=== PATIENT | female | born 1960 | race Caucasian/White ===

== ENCOUNTER → 2020-07-03 11:04 | Outpatient (BNVA) | payer SELFPAY | PROVIDERS: PCP Family Medicine; Visit Provider Internal Medicine ==

== ENCOUNTER 2021-06-06 09:48 | Outpatient (REF) | payer OTHER, SELFPAY ==
[2021-06-06 11:35] LABS: MANUAL DIFF FLAG NO
[2021-06-06 11:43] LABS: Basophils Percent Auto 0.4 % (0-2); Eosinophils Absolute Auto 0.1 X10*3/uL (0.0-0.4); Eosinophils Percent Auto 2.4 % (0-4); Hematocrit 37.4 % (37.0-47.0); Hemoglobin 12.6 g/dl (12.0-16.0); Imm Gran Abs Auto 0.01 X10*3/uL (0.00-0.03); Imm Gran Pct Auto 0.2 % (0.0-0.4); Lymphocytes Absolute Auto 1.7 X10*3/uL (1.2-4.9); Lymphocytes Percent Auto 31.7 % (20-40); Mean Corpuscular HGB Conc 33.7 g/dl (31.0-35.0); Mean Corpuscular Hemoglobin 30.4 pg (27.0-33.0); Mean Corpuscular Volume 90.3 fL (80.0-98.0); Mean Platelet Volume 10.1 fL (9.4-12.3); Monocytes Absolute Auto 0.5 X10*3/uL (0.1-1.2); Monocytes Percent Auto 9.6 % (2-11); Neutrophils Percent Auto 55.7 % (45-73); Platelet Count 237 X10*3/uL (160-400); Red Blood Count 4.14 X10*6/uL (4.20-5.50); Red Cell Distribution Width 13.8 % (11.0-16.0); White Blood Count 5.4 X10*3/uL (4.8-10.8)
[2021-06-06 12:05] LABS: Alanine Aminotransferase 19 U/L (0-31); Albumin Level 4.3 g/dL (3.5-5.0); Alkaline Phosphatase 66 U/L (39-117); Anion Gap 10 (12-20); Aspartate Amino Transferase 23 U/L (5-31); Bilirubin Total 0.4 mg/dL (0.0-1.0); Blood Urea Nitrogen 20 mg/dL (9-16); Calcium 9.4 mg/dL (8.4-10.2); Carbon Dioxide 27 mmol/L (22-29); Chloride 107 mmol/L (96-108); Cholesterol 217 mg/dL; Estimated Glomerular Filt Rate > 60; Glucose Fasting 99 mg/dL (60-99); HDL Cholesterol 74 mg/dL; LDL Cholesterol Calculated 130 mg/dl; Potassium 4.4 mmol/L (3.3-5.1); Sodium 140 mmol/L (135-145); Total Protein 6.8 g/dL (6.5-8.0); Triglycerides 65 mg/dL
[2021-06-06 12:27] LABS: TSH reflex Free T4 1.71 uIU/mL (0.32-4.0)
== END 2021-06-06 09:49 | disposition home or self-care (01) ==
LOC: HO.WFDLDS 09:48
PROVIDERS: Visit Provider Family Medicine
DX: Z00.00 Encounter for general adult medical examination without abnormal findings (principal); E78.5 Hyperlipidemia, unspecified; E87.5 Hyperkalemia; I10 Essential (primary) hypertension; R31.29 Other microscopic hematuria
CPT/HCPCS: 36415; 80053; 80061; 84443; 85025

== ENCOUNTER → 2021-07-01 10:33 | Outpatient (BNVA) | payer SELFPAY | PROVIDERS: PCP Family Medicine; Visit Provider Internal Medicine | DX: Z02.79 Encounter for issue of other medical certificate (principal) ==

== ENCOUNTER 2021-10-17 10:49 | Outpatient (REF) | payer OTHER, SELFPAY ==
--- NOTE | ~2021-10-17 | MM_ITS ---
EXAMINATION: BONE DENSITOMETRY CLINICAL INDICATION: Other specified disorders of bone density and structure, unspecified site. COMPARISON: Baseline BD dated 10/05/2019. TECHNIQUE: Using a Practice Management e-Tools DXA System (software version: 13.1) manufactured by [employer], dual-energy x-ray absorptiometry was performed of the lumbar spine and left hip. The images are of good technical quality. Summary results are attached. FINDINGS: AP SPINE L1-L4: Current: BMD 1.175 g/cm2, Z-score 0.7, T-score 0.0, normal, 4.6% increase from baseline (<5% change is not significant). Baseline: BMD 1.123 g/cm2. LEFT FEMUR, NECK: Current: BMD 0.882 g/cm2, Z-score -0.2, T-score -1.1, osteopenia. Baseline: BMD 0.843 g/cm2. LEFT FEMUR, TOTAL: Current: BMD 0.988 g/cm2, Z-score 0.4, T-score -0.2, normal, 4.8% increase from baseline (<5% change is not significant). Baseline: BMD 0.943 g/cm2. IDENTIFIED RISK FACTORS: Menopause. HISTORY OF FRACTURE: None listed. MEDICATIONS: Calcium supplement and/or multivitamin. Vitamin D. MM/XR DEXA axial skeleton IMPRESSION: 1. DIAGNOSIS: Osteopenia based on the lowest T-score value of -1.1 in the femoral neck applying World Health Organization criteria. 2. 10-YEAR FRACTURE RISK PREDICTION, FRAX: Major osteoporotic fracture (clinical spine, forearm, hip or shoulder) 7.1%. Hip fracture 0.4%. 3. Treatment Recommendations: NOF guidelines recommend consideration for treatment in postmenopausal women and men age 50 and older presenting with the following: -A hip or vertebral (clinical or morphometric) fracture. -T-score less than or equal to -2.5 at the femoral neck or spine after appropriate evaluation to exclude secondary causes. -Low bone mass at the hip or spine and a 10-year fracture probability by FRAX of greater than or equal to 3% for hip fracture or greater than or equal to 20% for major osteoporotic fracture based on the [place] adapted WHO algorithm. 4. Other Recommendations: All treatment decisions require clinical judgment and consideration of individual patient factors, including patient preferences, comorbidities, previous drug use, risk factors not captured in the FRAX model (e.g. frailty, falls, vitamin D deficiency, increased bone turnover, interval significant decline in bone density) and possible under or overestimation of fracture risk by FRAX. Additional medical evaluation for secondary cause of low bone mineral density may be appropriate. FUTURE SCAN RECOMMENDATION: People with diagnosed cases of osteoporosis or at high risk for fracture should have regular bone mineral density tests. For patients eligible for Medicare, routine testing is allowed once every 2 years. The testing frequency can be increased to one year for patients who have rapidly progressing disease, those who are receiving or discontinuing medical therapy to restore bone mass, or have additional risk factors.
== END 2021-10-17 10:50 | disposition home or self-care (01) ==
LOC: HO.MAMMO 10:49
PROVIDERS: Absent Provider Obstetrics & Gynecology; PCP Family Medicine; Visit Provider Family Medicine
DX: Z13.820 Encounter for screening for osteoporosis (principal); M85.80 Other specified disorders of bone density and structure, unspecified site; Z78.0 Asymptomatic menopausal state
CPT/HCPCS: 77080

== ENCOUNTER 2021-12-12 11:00 | Outpatient (RCR) | payer OTHER, SELFPAY ==
--- NOTE | 2021-10-20 15:09 | MHC.PT.EP ---
[facility] [place] Office [place] Office [place] Office [address] Ever Hernández 140 [facility] [phone] F: [phone] F: [phone] F: [phone] F: [phone] Physical Therapy Plan of Care Date of Evaluation: 10/20/21 Date of Surgery: Diagnosis: stress incontinence Assessment: Pt consented to an internal exam of her pelvic floor muscles. The patient arrived with decreased tone in the anterior vaginal wall. Poor coordination for motor recruitment that improved with repetition of contraction and cueing. The patient had poor muscular endurance and the contraction faded without her awareness. Improved awareness with cues. The patient also reports a great deal of urge incontinence. I educated her on urge suppression techniques, bladder retraining techniques, and other lifestyle changes such as avoidance of just in case peeing. The patient is an excellent candidate for skilled Pelvic floor PT. Frequency and Duration: The patient will be seen 1x/week x 6 weeks. Short Term Goals: 1. Pt to verbalize understanding of urge suppression techniques. 2. Pt to verbalize understanding of initial HEP. Senior Living Goals: 1. Pt to be able to play recreational sport without urinary incontinence. 2. Pt to be able to improve PFM coordination to allow 10 quick contractions consecutively 3. Pt to have improved PFM motor recruitment to have improved endurance contraction. Treatment Plan: Modalities to reduce pain, spasms and effusion. Manual therapy to restore motion and function. Therapeutic exercise to improve strength and flexibility. Neuromuscular re-education for posture and balance. Therapeutic activities to return to functional activities of daily living. Electronically signed by: Poonam Mariano PT DPT Please sign and return to therapist. Thank you for your referral.
--- NOTE | 2021-12-12 14:15 | MHC.PT.DC ---
[facility] [place] Office [place] Office [place] Office [address] Ever Hernández [address] [phone] F: [phone] F: [phone] F: [phone] F: [phone] Physical Therapy Discharge Report Diagnosis: stress incontinence Date of Surgery: Date of Evaluation: 10/20/21 Date of Discharge: 12/12/21 Treatments to Date: 6 Cancellations to Date: No Shows to Date: Discharge Status: Achieved Goals Improved Function Independent with HEP Discharge Summary: Pt feels she has the tools to continue independently. She no longer has incontinence. Her endurance has improved significantly as well as overall coordination and motor recruitment of PFM. She learned how to have NMR in standing which will help with playing tennis. Pt has her HEP with pictures and descriptions and she is discharged from skilled PT at this time Electronically signed by: Poonam Mariano PT DPT Please sign and return to therapist. Thank you for your referral.
== END 2021-12-12 14:16 | disposition home or self-care (01) ==
LOC: HO.PT 11:00
PROVIDERS: PCP Family Medicine; Visit Provider Family Medicine
DX: N39.3 Stress incontinence (female) (male) (principal)
CPT/HCPCS: 97110; 97112; 97162; 97530

== ENCOUNTER 2021-12-19 09:36 | Outpatient (REF) | payer OTHER, SELFPAY ==
[2021-12-19 11:34] LABS: MANUAL DIFF FLAG NO
[2021-12-19 11:36] LABS: Basophils Percent Auto 0.2 % (0-2); Eosinophils Absolute Auto 0.1 X10*3/uL (0.0-0.4); Eosinophils Percent Auto 1.6 % (0-4); Hematocrit 37.6 % (37.0-47.0); Hemoglobin 12.2 g/dl (12.0-16.0); Imm Gran Abs Auto 0.02 X10*3/uL (0.00-0.03); Imm Gran Pct Auto 0.3 % (0.0-0.4); Lymphocytes Absolute Auto 1.9 X10*3/uL (1.2-4.9); Lymphocytes Percent Auto 30.8 % (20-40); Mean Corpuscular HGB Conc 32.4 g/dl (31.0-35.0); Mean Corpuscular Volume 89.5 fL (80.0-98.0); Mean Platelet Volume 10.1 fL (9.4-12.3); Monocytes Absolute Auto 0.6 X10*3/uL (0.1-1.2); Monocytes Percent Auto 9.3 % (2-11); Neutrophils Absolute Auto 3.6 x10*3/uL (2.0-8.3); Neutrophils Percent Auto 57.8 % (45-73); Platelet Count 242 X10*3/uL (160-400); Red Cell Distribution Width 14.1 % (11.0-16.0); White Blood Count 6.2 X10*3/uL (4.8-10.8)
[2021-12-19 11:51] LABS: Appearance Urine CLEAR; Color Urine YELLOW; Glucose Urine UA NEG (NEG); Leukocyte Esterase Urine NEG (NEG); Nitrite Urine NEG (NEG); Specific Gravity - Urine <= 1.005 (1.005-1.025); Urine Blood NEG (NEG); Urine Ketones NEG (NEG); Urine Protein NEG (NEG-TRACE)
[2021-12-19 12:14] LABS: Alanine Aminotransferase 18 U/L (0-31); Albumin Level 4.2 g/dL (3.5-5.0); Alkaline Phosphatase 65 U/L (39-117); Anion Gap 11 (12-20); Aspartate Amino Transferase 22 U/L (5-31); Bilirubin Total 0.5 mg/dL (0.0-1.0); Blood Urea Nitrogen 17 mg/dL (9-16); Calcium 9.6 mg/dL (8.4-10.2); Carbon Dioxide 29 mmol/L (22-29); Chloride 106 mmol/L (96-108); Cholesterol 214 mg/dL; Estimated Glomerular Filt Rate > 60; Glucose Fasting 87 mg/dL (60-99); HDL Cholesterol 71 mg/dL; LDL Cholesterol Calculated 128 mg/dl; Potassium 4.7 mmol/L (3.3-5.1); Sodium 141 mmol/L (135-145); Total Protein 6.4 g/dL (6.5-8.0); Triglycerides 76 mg/dL
[2021-12-19 12:36] LABS: TSH reflex Free T4 1.53 uIU/mL (0.32-4.0)
[2021-12-19 12:36] LABS: Creatinine Urine 37.54 mg/dL; Microalbumin Urine < 5.0 mg/L
== END 2021-12-19 09:37 | disposition home or self-care (01) ==
LOC: HO.WFDLDS 09:36
PROVIDERS: Visit Provider Family Medicine
DX: Z00.00 Encounter for general adult medical examination without abnormal findings (principal); M85.80 Other specified disorders of bone density and structure, unspecified site; R31.29 Other microscopic hematuria; I10 Essential (primary) hypertension
CPT/HCPCS: 36415; 80053; 80061; 81003; 82043; 84443; 85025

== ENCOUNTER 2022-04-28 17:09 | Outpatient (REF) | payer OTHER, SELFPAY ==
--- NOTE | ~2022-04-28 | XR_ITS ---
EXAMINATION: XR CHEST CLINICAL INFORMATION: Chronic cough. COMPARISON: None TECHNIQUE: 2 views of the chest were obtained. FINDINGS: No significant abnormality is noted involving the heart, lungs, mediastinum, bony thorax or soft tissues. XR/XR chest 2V IMPRESSION: No acute cardiopulmonary process.
== END 2022-04-28 17:10 | disposition home or self-care (01) ==
LOC: HO.XRAY 17:09
PROVIDERS: PCP Family Medicine; Visit Provider Family Medicine
DX: R05.3 Chronic cough (principal)
CPT/HCPCS: 71046

== ENCOUNTER 2022-06-08 09:57 | Outpatient (REF) | payer OTHER, SELFPAY ==
--- NOTE | ~2022-06-08 | XR_ITS ---
EXAMINATION: XR SINUSES CLINICAL INFORMATION: Sinusitis COMPARISON: None TECHNIQUE: 3 views of the sinuses were obtained. FINDINGS: Paranasal sinuses appear clear without air-fluid levels. No fractures are identified. No radiodense foreign bodies. XR/XR sinus min 3V IMPRESSION: Unremarkable examination.
== END 2022-06-08 09:58 | disposition home or self-care (01) ==
LOC: HO.XRAY 09:57
PROVIDERS: PCP Family Medicine; Visit Provider Otolaryngology
DX: J32.9 Chronic sinusitis, unspecified (principal)
CPT/HCPCS: 70220

== ENCOUNTER → 2022-06-29 09:59 | Outpatient (BNVA) | payer OTHER, SELFPAY | PROVIDERS: PCP Family Medicine; Visit Provider Internal Medicine | DX: Z02.79 Encounter for issue of other medical certificate (principal) ==

== ENCOUNTER 2023-03-03 11:43 | Outpatient (REF) | payer OTHER, SELFPAY ==
[2023-03-03 14:46] LABS: MANUAL DIFF FLAG NO
[2023-03-03 14:55] LABS: Appearance Urine Clear; Color Urine Yellow; Glucose Urine UA Negative (Negative); Leukocyte Esterase Urine Negative (Negative); Nitrite Urine Negative (Negative); PH 5.5 (5.0-9.0); Specific Gravity - Urine 1.015 (1.005-1.025); Urine Blood Negative (Negative); Urine Ketones Negative (Negative); Urine Protein Negative (Neg-Trace)
[2023-03-03 14:56] LABS: Basophils Percent Auto 0.5 % (0-2); Eosinophils Absolute Auto 0.1 X10*3/uL (0.0-0.4); Eosinophils Percent Auto 1.5 % (0-4); Hematocrit 38.3 % (37.0-47.0); Hemoglobin 12.5 g/dl (12.0-16.0); Imm Gran Abs Auto 0.01 X10*3/uL (0.00-0.03); Imm Gran Pct Auto 0.2 % (0.0-0.4); Lymphocytes Absolute Auto 1.7 X10*3/uL (1.2-4.9); Lymphocytes Percent Auto 28.2 % (20-40); Mean Corpuscular HGB Conc 32.6 g/dl (31.0-35.0); Mean Corpuscular Volume 91.8 fL (80.0-98.0); Mean Platelet Volume 10.7 fL (9.4-12.3); Monocytes Absolute Auto 0.7 X10*3/uL (0.1-1.2); Monocytes Percent Auto 11.1 % (2-11); Neutrophils Absolute Auto 3.5 x10*3/uL (2.0-8.3); Neutrophils Percent Auto 58.5 % (45-73); Platelet Count 254 X10*3/uL (160-400); Red Blood Count 4.17 X10*6/uL (4.20-5.50); Red Cell Distribution Width 14.5 % (11.0-16.0); White Blood Count 5.9 X10*3/uL (4.8-10.8)
[2023-03-03 15:30] LABS: Alanine Aminotransferase 21 U/L (0-31); Albumin Level 4.2 g/dL (3.5-5.0); Alkaline Phosphatase 69 U/L (39-117); Anion Gap 15 (12-20); Aspartate Amino Transferase 33 U/L (5-31); Bilirubin Total 0.5 mg/dL (0.0-1.0); Blood Urea Nitrogen 18 mg/dL (9-16); Calcium 9.8 mg/dL (8.4-10.2); Carbon Dioxide 24 mmol/L (22-29); Chloride 108 mmol/L (96-108); Cholesterol 216 mg/dL; Estimated Glomerular Filt Rate > 60; Glucose Fasting 93 mg/dL (60-99); HDL Cholesterol 75 mg/dL; LDL Cholesterol Calculated 126 mg/dl; Sodium 142 mmol/L (135-145); Total Protein 7.2 g/dL (6.5-8.0); Triglycerides 77 mg/dL
[2023-03-03 15:47] LABS: TSH reflex Free T4 1.41 uIU/mL (0.32-4.0)
[2023-03-03 15:57] LABS: Creatinine Urine 69.25 mg/dL; Microalbum/Creatinine Ratio Ur 8.6 ug/mg cr
== END 2023-03-03 11:44 | disposition home or self-care (01) ==
LOC: HO.WFDLDS 11:43
PROVIDERS: Visit Provider Family Medicine
DX: Z00.00 Encounter for general adult medical examination without abnormal findings (principal); I10 Essential (primary) hypertension
CPT/HCPCS: 36415; 80053; 80061; 81003; 82043; 84443; 85025

== ENCOUNTER 2023-03-09 11:04 | Outpatient (AMB) | payer OTHER, SELFPAY ==
[2023-03-09 11:07] VITALS: BP 128/70; PULSE 56; O2SAT 100; BMI 29.9
--- NOTE | 2023-03-09 11:07 | MHC.PC.OV ---
Vital Signs 03/09/23 11:07 Height 5 ft 5.4 in Weight 182 lb BMI 29.9 BP 128/70 Pulse 56 Pulse Source Pulse Oximeter Pulse Oximetry (%) 100 Oxygen Delivery Method Room Air Intake Visit Reasons: CPE with f/u labs and health maint. Intake Note: Patient is here for follow up on labs. Allergies latex Allergy (Unknown, Verified 03/09/23 11:13) rash Medication List - Last Reconciled 03/09/23 by Sander Silva MD clobetasol 0.05% 1 appl topical BID clobetasol 0.05% mL topical BEDTIME fluticasone propionate 50 mcg/actuation (Flonase Allergy Relief) 1 spray intranasal Q12H 30 days losartan 25 mg PO DAILY pimecrolimus 1% appl topical BID PRN polymyxin B sulf-trimethoprim 10,000 unit- 1 mg/mL 1 drp ophthalmic (eye) Q3H simvastatin 20 mg PO BEDTIME Tobacco use date assessed: 08/04/22 Dental Screening Dental Screen Date: 03/09/23 Did you have a dental visit in the last 12 months?: Yes Did you have a dental problem in the last 6 months where you did not have access to dental care?: No Was dental information given to patient?: No HPI CPE with f/u labs and health maint. HPI Details 62 y/o female presents for a CPE with f/u labs and health maintenance. Labs were drawn 03/03/23. Reviewed labs with pt. Mildly elevated AST at 33. Triglycerides 77. TC 216. LDL 126. HDL 75. She is on simvastatin 20mg. Blood pressure today 128/70. She is on losartan 25mg daily. HPI Comments History of Present Illness Details Documentation assistance for Sander Silva MD, was provided by Jayden Hodgson, Oceanographer Geological on 03/09/2023 12:20 PM BOB. Pamela, Dr. Silva, have read, observed, and verified documentation. [facility] Surgical History History of section History of colonoscopy Family History Father Colon cancer AAA (abdominal aortic aneurysm) Mother AAA (abdominal aortic aneurysm) HTN (hypertension) Brother No problems noted. Brother No problems noted. Sister No problems noted. Son No problems noted. Daughter No problems noted. 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 1. Little interest or pleasure in doing things: not at all 2. Feeling down, depressed, or hopeless: not at all 3. Trouble falling or staying asleep, or sleeping too much: not at all 4. Feeling tired or having little energy: not at all 5. Poor appetite or overeating: not at all 6. Feeling bad about yourself - or that you are a failure or have let yourself or your family down: not at all 7. Trouble concentrating on things, such as reading the newspaper or watching television: not at all 8. Moving or speaking so slowly that other people could have noticed. Or the opposite - being so fidgety or restless that you have been moving around a lot more than usual: not at all 9. Thoughts that you would be better off or of hurting yourself in some way: not at all Total score: 0 Source: Developed by Drs. Abelardo Youssef, Rita Warner, Reynold Jackson and colleagues, with an educational ezio from [employer]. Thrive Questionnaire I am a: Patient What is your living situation today?: I have a steady place to live Within the past 12 months, did the food you bought not last and you didn't have the money to get more?: Never true Within the past 12 months, did you worry whether your food would run out before you got money to buy more?: Never true Do you have trouble paying for medicines?: No Do you have trouble getting transportation to medical appointments?: No Do you have trouble taking care of your child, family member or friend?: No Do you have trouble with day-to-day activities such as bathing, preparing meals, shopping, managing finances, etc.?: No Are you currently unemployed and looking for a job?: No Are you interested in more education?: No AUDIT C Alcohol Use Questionnaire (AUDIT-C) 1. How often do you have a drink containing alcohol?: Monthly or less 2. How many drinks containing alcohol do you have on a typical day when you are drinking?: 1 or 2 3. How often do you have six or more drinks on one occasion?: Never Total Score: 1 ILIANA-7 AMB Questionnaire ILIANA-7 Date ILIANA - 7 assessed: 09/23/21 Feeling nervous, anxious, or on edge: 0 = Not at all Not being able to stop or control worryin = Not at all Worrying too much about different things: 0 = Not at all Trouble relaxin = Not at all Being so restless that it is hard to sit still: 0 = Not at all Becoming easily annoyed or irritable: 0 = Not at all Feeling afraid as if something awful might happen: 0 = Not at all Total ILIANA-7 score (0-4 normal; 5-9 mild; 10-14 moderate; 15-21 severe): 0 Source: Developed by Drs. Abelardo Youssef, Rita Warner, Reynold Jackson and colleagues, with an educational ezio from [employer]. Review of Systems Const Denies chills, Denies fatigue, Denies fever(s), Denies headache(s) and Denies weakness Eyes Denies change in vision ENT Denies dizziness, Denies headache(s), Denies hearing loss, Denies nasal congestion, Denies sinus pain, Denies sinus pressure and Denies sore throat Card Denies chest pain, Denies lightheadedness, Denies dyspnea and Denies other (palpitations) Resp Denies cough, Denies dyspnea and Denies wheezing GI Denies abdominal pain, Denies melena, Denies hematochezia, Denies change in bowel habits, Denies dyspepsia and Denies nausea Denies hematuria and Denies dysuria Musc Denies abnormal gait, Denies myalgias, Denies arthralgias, Denies numbness and Denies tingling Skin/Breast Denies rash, Denies unusual bruising and Denies wounds Neuro Denies abnormal gait, Denies dizziness, Denies headache(s), Denies memory loss, Denies numbness, Denies Sensory deficit (Neuro), Denies tingling and Denies weakness Psych Denies anxiety, Denies depression and Denies memory loss Endo Denies cold intolerance, Denies fatigue, Denies heat intolerance, Denies polydipsia and Denies polyuria Mingo/Lymph Denies easy bleeding and Denies easy bruising Aller/Immun Denies wheezing Physical exam (Primary Care) Vital Signs: Last Vital Signs Pulse 56 03/09/23 11:07 BP 128/70 03/09/23 11:07 Pulse Ox 100 03/09/23 11:07 Oxygen Delivery Method Room Air 03/09/23 11:07 BMI result Body Mass Index 29.9 Tobacco/Smoking Status: Tobacco use Status Tobacco use date assessed 08/04/22 03/09/23 11:11 Patient Tobacco Use Status Former Tobacco user 03/09/23 11:11 e-Cigarette/Vaping Use Never Used 03/09/23 11:11 PHQ-9: PHQ-9 Score PHQ-9: Total score 0 03/09/23 12:05 Const General: no acute distress, well developed, alert and awake Nutritional Appearance: well nourished Orientation/consciousness: patient oriented x3 HENMT Head: Yes normocephalic and Yes atraumatic Ears: hearing grossly normal bilaterally and TM's normal bilaterally General nose exam: Normal external nose present and Normal nares present Mouth: Normal oral and palatal mucosa present and moist mucous membranes Teeth and gingiva: dentition normal Throat: Yes posterior oropharynx normal Eyes General: appearance normal, both eyes and all related structures Pupils: Equal, round and reactive pupils present and Pupil accommodation reflex normal EOM: EOMs intact bilaterally Neck Neck: Yes normal visual inspection, Yes no lymphadenopathy and Yes trachea midline Thyroid: Thyroid normal Carotids: no bruits Lymphatic: no lymphadenopathy noted Chest Chest palpation & inspection: normal inspection of the chest Resp Effort & Inspection: normal respiratory effort Auscultation: clear to auscultation bilaterally Cardio Rate: regular rate Rhythm: regular rhythm Heart sounds: S1 normal heart sound present, S2 normal heart sound present, no gallops, no murmurs and no rubs Bruits: no abdominal aortic bruits and no carotid bruits GI Palpation (GI): No Abdominal aortic bruit present, Soft to palpation, nontender, No hepatosplenomegaly present and No Rebound tenderness present Auscultation: normal bowel sounds General: Yes no CVA tenderness Back/Spine/Pelvis Back: no CVA tenderness Cervical Spine: cervical ROM normal and No Cervical spine tenderness Thoracic/Lumbar Spine: thoraco-lumbar ROM normal, No pain with thoraco-lumbar ROM, No thoracic spinal tenderness and No lumbar spinal tenderness Skin Lesions: no lesions Rashes: no rashes Trauma: no lacerations or abrasions Wounds: no wounds Nails: normal Neuro General: patient oriented x3 Cranial nerves: Yes Equal, round and reactive pupils present Cognition (Neuro): normal cognition Gait exam (Neuro): Normal gait present Motor exam (neuro): 5/5 motor strength present throughout Sensory Exam: No Sensory deficit (Neuro) Deep tendon reflexes (DTR's): Right patellar reflex intensity grade: 2+ and Left patellar reflex intensity grade: 2+ Extrem General: Yes normal to inspection and No edema Psych Appearance: grossly normal Affect: normal affect Attitude: cooperative Thought process: Normal thought process present Assessment and Plan Assessment & Plan (1) Adult general medical exam: Code(s): Z00.00 - Encounter for general adult medical examination without abnormal findings Plan: 62-year-old female presents for complete physical exam Encouraged healthy diet with active lifestyle and plenty of exercise (2) Essential hypertension: Code(s): I10 - Essential (primary) hypertension Plan: Blood pressure is controlled. Goal is less than 140/90 Continue current medication (3) Screening for cervical cancer: Code(s): Z12.4 - Encounter for screening for malignant neoplasm of cervix Plan: She gets regular Pap smears by Dr. Wang Up-to-date (4) Enlargement of sternoclavicular joint: Code(s): M25.819 - Other specified joint disorders, unspecified shoulder Plan: Check chest x-ray (5) Lipoma: Code(s): D17.9 - Benign lipomatous neoplasm, unspecified Plan: Cyst or lipoma under left jaw She has seen dermatology about this and they recommended no treatment for now. She can let me know if this is changing in any way (6) Cough: Code(s): R05 - Cough Plan: Getting chest x-ray as above Continue using allergy medication (7) Elevated liver enzymes: Code(s): R74.8 - Abnormal levels of other serum enzymes Plan: Work at weight loss Will repeat in 6 weeks and if the same or higher, will check ultrasound (8) Screening for colon cancer: Code(s): Z12.11 - Encounter for screening for malignant neoplasm of colon Plan: Last colonoscopy about 3 years ago and she was told to follow-up in 2024 Up-to-date (9) Screening for breast cancer: Code(s): Z12.39 - Encounter for other screening for malignant neoplasm of breast Plan: Has mammogram scheduled 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 (10) Osteopenia: Code(s): M85.80 - Other specified disorders of bone density and structure, unspecified site Plan: Bone density test in September 2021 Will repeat this in 2023 Orders: Orders XR chest 2V Today M25.819 - Other specified joint disorders, unspecified shoulder Coding Level of Care Code Est Pt Level 3 (58185) New Pt Prev Care 40-64y(99280) Diagnoses Adult general medical exam Z00.00 Essential hypertension I10 Screening for cervical cancer Z12.4 Enlargement of sternoclavicular joint M25.819 Lipoma D17.9 Cough R05 Elevated liver enzymes R74.8 Screening for colon cancer Z12.11 Screening for breast cancer Z12.39 Osteopenia M85.80
== END 2023-03-09 12:35 | disposition home or self-care (01) ==
PROVIDERS: Visit Provider Family Medicine
DX: Z00.00 Encounter for general adult medical examination without abnormal findings (principal); I10 Essential (primary) hypertension; Z12.4 Encounter for screening for malignant neoplasm of cervix; M25.819 Other specified joint disorders, unspecified shoulder; D17.9 Benign lipomatous neoplasm, unspecified; R05.9 Cough, unspecified; R74.8 Abnormal levels of other serum enzymes; Z12.11 Encounter for screening for malignant neoplasm of colon; Z12.39 Encounter for other screening for malignant neoplasm of breast; M85.80 Other specified disorders of bone density and structure, unspecified site
CPT/HCPCS: 99386; 99396

== ENCOUNTER 2023-04-19 09:39 | Outpatient (REF) | payer OTHER, SELFPAY ==
[2023-04-19 12:48] LABS: Alanine Aminotransferase 13 U/L (0-31); Albumin Level 4.1 g/dL (3.5-5.0); Alkaline Phosphatase 66 U/L (39-117); Anion Gap 11 (12-20); Aspartate Amino Transferase 22 U/L (5-31); Bilirubin Total 0.4 mg/dL (0.0-1.0); Blood Urea Nitrogen 17 mg/dL (9-16); Calcium 9.8 mg/dL (8.4-10.2); Carbon Dioxide 26 mmol/L (22-29); Chloride 108 mmol/L (96-108); Estimated Glomerular Filt Rate > 60; Glucose Random 90 mg/dL (60-115); Potassium 4.2 mmol/L (3.3-5.1); Sodium 141 mmol/L (135-145); Total Protein 6.9 g/dL (6.5-8.0)
== END 2023-04-19 09:40 | disposition home or self-care (01) ==
LOC: HO.WFDLDS 09:39
PROVIDERS: Visit Provider Family Medicine
DX: R74.8 Abnormal levels of other serum enzymes (principal)
CPT/HCPCS: 36415; 80053

== ENCOUNTER 2023-05-03 09:37 | Outpatient (AMB) | payer OTHER, SELFPAY ==
--- NOTE | 2023-05-03 09:35 | A.OFFPC_ITS ---
Intake Visit Reasons: follow up labs Intake Note: Patient is following up via telehealth for her labs. Patient expresses no concerns at this time. Licensed Sales Producer Required: No Accompanied by: Self / Same As Patient Allergies latex Allergy (Unknown, Verified 05/03/23 09:37) rash Tobacco use date assessed: 05/03/23 Dental Screening Dental Screen Date: 05/03/23 Did you have a dental visit in the last 12 months?: Yes Did you have a dental problem in the last 6 months where you did not have access to dental care?: No Was dental information given to patient?: Patient has dentist HPI follow up labs HPI Details 62 y/o female presents to f/u labs via trippiece. Labs were drawn 04/19/23. Reviewed labs with pt. Liver enzymes are fine. No x-rays to review. FORMERLY [facility] Surgical History History of section History of colonoscopy Family History Father Colon cancer AAA (abdominal aortic aneurysm) Mother AAA (abdominal aortic aneurysm) HTN (hypertension) Brother No problems noted. Brother No problems noted. Sister No problems noted. Son No problems noted. Daughter No problems noted. 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 Abelardo Youssef, Rita Warner, Reynold Jackson and colleagues, with an educational ezio from [email or web address]. Physical exam (Primary Care) Tobacco/Smoking Status: Tobacco use Status Tobacco use date assessed 05/03/23 05/03/23 09:37 Patient Tobacco Use Status Former Tobacco user 05/03/23 09:37 e-Cigarette/Vaping Use Never Used 05/03/23 09:37 Telehealth Telehealth Location of provider rendering services: practice address Location of patient: address on file Patient Identification confirmed using: Name, : Yes Telehealth method: voice only Patient verbally consented to treatment: Yes Patient verbally consented to billing insurance company: Yes Patient informed of any privacy concerns related to visit: Yes Minutes spent on Phone/Video with Pt.: 7 Assessment and Plan Assessment & Plan (1) Elevated liver enzymes: Code(s): R74.8 - Abnormal levels of other serum enzymes Plan: Liver?enzymes?both?back?within?normal?range.??Continue?weight?control/diet?and?g ood?hydration. (2) Enlargement of sternoclavicular joint: Code(s): M25.819 - Other specified joint disorders, unspecified shoulder Plan: Patie nt?still?has?enlargement?of?right?sternoclavicular?joint.??No?pain?and?this?does ?not?seem?to?be?changing.??She?has?not?gotten?her?chest?x- ray?performed?yet.??Will?also?add?clavicle?film?order. She?can ?schedule?a?telemedicine?appointment?to?review?this?and/or?discuss?if?it?is?ramirez ging?in?any?way. (3) Enlargement of left sternoclavicular joint: Code(s): M25.812 - Other specified joint disorders, left shoulder Plan: Patient?has?noted?left?sternoclavicular?joint?enlargement.??This?does?not ?seem?to?be?changing?and?is?nontender?but?she?is?concerned?about?his?still. Chest?x-ray?and?left?clavicle?plain?films?are?ordered. She?can?schedule?an?appointment?to?review?these?or?if?she?is?having?a ny?significant?change Orders: Orders XR clavicle LT Today M25.812 - Other specified joint disorders, left shoulder Coding Level of Care Code Tele Est Pt Level 2 (00318) Diagnoses Elevated liver enzymes R74.8 Enlargement of sternoclavicular joint M25.819 Enlargement of left sternoclavicular joint M25.819
== END 2023-05-03 15:15 | disposition home or self-care (01) ==
PROVIDERS: PCP Family Medicine; Visit Provider Family Medicine
DX: R74.8 Abnormal levels of other serum enzymes (principal); M25.811 Other specified joint disorders, right shoulder; M25.812 Other specified joint disorders, left shoulder
CPT/HCPCS: 99441

== ENCOUNTER → 2023-06-23 08:59 | Outpatient (BNVA) | payer SELFPAY | PROVIDERS: PCP Family Medicine; Visit Provider Internal Medicine | DX: Z02.79 Encounter for issue of other medical certificate (principal) ==

== ENCOUNTER 2023-09-06 09:47 | Outpatient (REF) | payer OTHER, SELFPAY ==
--- NOTE | ~2023-09-06 | XR_ITS ---
EXAMINATION: XR ELBOW, RIGHT CLINICAL INFORMATION: Right elbow pain COMPARISON: None available. TECHNIQUE: AP, lateral, and oblique views of the right elbow. FINDINGS: BONES: Bony structures are intact. There is no focal bone destruction or periosteal reaction seen. JOINTS: Alignment of joints is normal. SOFT TISSUE: Soft tissue is normal. No radiopaque foreign body or abnormal air collection is seen. XR/XR elbow RT min 3V IMPRESSION: 1. Normal x-rays of right elbow. No fracture or dislocation or signs of osteomyelitis are found.
--- NOTE | ~2023-09-06 | XR_ITS ---
EXAMINATION: XR CLAVICLE, LEFT CLINICAL INFORMATION: Left shoulder disorder COMPARISON: None available. TECHNIQUE: Frontal and axial x-rays of the left clavicle. FINDINGS: The clavicle is intact. The bones and soft tissues are normal. No fracture. Acromioclavicular joint alignment is anatomic. XR/XR clavicle LT IMPRESSION: Normal left clavicle.
== END 2023-09-06 09:48 | disposition home or self-care (01) ==
LOC: HO.XRAY 09:47
PROVIDERS: Absent Provider Physical Medicine & Rehabilitation; PCP Family Medicine; Visit Provider Family Medicine
DX: M25.812 Other specified joint disorders, left shoulder (principal); M25.521 Pain in right elbow
CPT/HCPCS: 73000; 73080

== ENCOUNTER 2024-01-13 10:31 | Outpatient (AMB) | payer OTHER, SELFPAY ==
--- NOTE | 2024-01-13 10:42 | A.OFFPC_ITS ---
Vital Signs 01/13/24 10:44 Height 5 ft 5.4 in Weight 180 lb 4 oz BMI 29.6 BP 144/64 H Blood Pressure Location Lt brachial Position Sitting Pulse 55 Pulse Source Pulse Oximeter Pulse Oximetry (%) 98 Oxygen Delivery Method Room Air Intake Visit Reasons: 6 Month f/u chronic conditions/ rs from october Intake Note: Patient is here for follow up on blood pressure check, and other chronic conditions. Allergies latex Allergy (Unknown, Verified 01/13/24 10:48) rash Medication List - Last Reconciled 01/13/24 by Sander Silva MD clobetasol 0.05% 1 appl topical BID clobetasol 0.05% mL topical BEDTIME fluticasone propionate 50 mcg/actuation (Flonase Allergy Relief) 1 spray intranasal Q12H 30 days losartan 25 mg PO DAILY pimecrolimus 1% appl topical BID PRN polymyxin B sulf-trimethoprim 10,000 unit- 1 mg/mL 1 drp ophthalmic (eye) Q3H simvastatin 20 mg PO BEDTIME Tobacco use date assessed: 01/13/24 Dental Screening Dental Screen Date: 01/13/24 HPI 6 Month f/u chronic conditions/ rs from october HPI Details 63 y/o female presents to f/u chronic co nditions. Blood pressure today 144/64. She is on losartan 25mg daily. [facility] Surgical History History of colonoscopy History of section Family History Father Colon cancer AAA (abdominal aortic aneurysm) Mother AAA (abdominal aortic aneurysm) HTN (hypertension) Brother No problems noted. Brother No problems noted. Sister No problems noted. Son No problems noted. Daughter No problems noted. 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 Abelardo Youssef, Rita Warner, Reynold Jackson and colleagues, with an educational ezio from [employer]. Review of Systems Const Denies chills, Denies fatigue, Denies fever(s), Denies headache(s) and Denies weakness ENT Denies dizziness and Denies headache(s) Card Denies dyspnea Resp Denies cough, Denies dyspnea, Denies wheezing and Denies other (shortness of breath) Musc Denies numbness and Denies tingling Neuro Denies dizziness, Denies headache(s), Denies numbness, Denies tingling and Denies weakness Psych Denies anxiety and Denies depression Endo Denies fatigue Aller/Immun Denies wheezing Physical exam (Primary Care) Vital Signs: Last Vital Signs Pulse 55 01/13/24 10:44 BP 144/64 H 01/13/24 10:44 Pulse Ox 98 01/13/24 10:44 Oxygen Delivery Method Room Air 01/13/24 10:44 BMI result Body Mass Index 29.6 Tobacco/Smoking Status: Tobacco use Status Tobacco use date assessed 01/13/24 01/13/24 10:50 Patient Tobacco Use Status Former Tobacco user 01/13/24 10:44 e-Cigarette/Vaping Use Never Used 01/13/24 10:44 Const General: well developed; No acute distress Nutritional Appearance: well nourished Orientation/consciousness: patient oriented x3 HENMT Head: Yes normocephalic and Yes atraumatic Eyes General: appearance normal, both eyes and all related structures Pupils: Equal, round and reactive pupils present EOM: EOMs intact bilaterally Resp Effort & Inspection: normal respiratory effort Neuro General: patient oriented x3 and gait normal Cranial nerves: Yes Equal, round and reactive pupils present Psych Affect: normal affect Assessment and Plan Assessment & Plan (1) Essential hypertension: Code(s): I10 - Essential (primary) hypertension Plan: Blood?pressure?is?little?bit?above?goal?of?less?than?140/90 Has?been?fairly?well?controlled?and?her?log?of?bl ood?pressures?from?home?shows?blood?pressures?in?the?120s?over?60s Continue?current?medication?regimen Watch?salt/sodium?in?diet (2) Elbow pain: Code(s): M25.529 - Pain in unspecified elbow Plan: This?resolved?with?physical?therapy?at?[facility] Elbow?x-ray?was?normal (3) Disorder of sternoclavicular joint: Code(s): M25.9 - Joint disorder, unspecified Plan: Mild?swelling?of?left?sternoclavicular?joint. X-ray?negative No?changes She?will?let?me?know?if?there?are?any?changes Orders: Orders Comprehensive [place]. Panel Fast Today Z00.00 - Encounter for general adult medical examination without abnormal findings Complete Blood Count Auto Diff Today Z00.00 - Encounter for general adult medical examination without abnormal findings Microalbumin, Random (w Creat) Today I10 - Essential (primary) hypertension UA and rflx microscopic Today Z00.00 - Encounter for general adult medical examination without abnormal findings Lipid Panel Today Z00.00 - Encounter for general adult medical examination without abnormal findings TSH reflex Free T4 Today Z00.00 - Encounter for general adult medical examination without abnormal findings UA and rflx microscopic 1 Day Z00.00 - Encounter for general adult medical examination without abnormal findings Coding Level of Care Code Est Pt Level 4 (82789) Diagnoses Essential hypertension I10 Elbow pain M25.529 Disorder of sternoclavicular joint M25.9
[2024-01-13 10:44] VITALS: BP 144/64; PULSE 55; O2SAT 98; BMI 29.6
== END 2024-01-13 11:34 | disposition home or self-care (01) ==
LOC: HO.HMGFM 10:31
PROVIDERS: PCP Family Medicine; Visit Provider Family Medicine
DX: I10 Essential (primary) hypertension (principal); M25.9 Joint disorder, unspecified
CPT/HCPCS: 99214

== ENCOUNTER 2024-01-13 11:33 | Outpatient (REF) | payer OTHER, SELFPAY ==
[2024-01-13 14:31] LABS: Appearance Urine Clear; Color Urine Yellow; Glucose Urine UA Negative (Negative); Leukocyte Esterase Urine Negative (Negative); Nitrite Urine Negative (Negative); PH 6.5 (5.0-9.0); Specific Gravity - Urine <= 1.005 (1.005-1.025); Urine Blood Negative (Negative); Urine Ketones Negative (Negative); Urine Protein Negative (Neg-Trace)
[2024-01-13 15:31] LABS: Creatinine Urine 21.01 mg/dL; Microalbumin Urine < 5.0 mg/L
== END 2024-01-13 11:34 | disposition home or self-care (01) ==
LOC: HO.WFDLDS 11:33
PROVIDERS: Visit Provider Family Medicine
DX: Z00.00 Encounter for general adult medical examination without abnormal findings (principal); I10 Essential (primary) hypertension
CPT/HCPCS: 81003; 82043; 82570

== ENCOUNTER 2024-02-25 11:32 | Outpatient (AMB) | payer OTHER, SELFPAY ==
--- NOTE | 2024-02-25 11:37 | MHC.PC.OV ---
Vital Signs 02/25/24 11:38 Height 5 ft 5.4 in Weight 180 lb BMI 29.6 BP 130/82 Blood Pressure Location Rt brachial Position Sitting Pulse 66 Pulse Source Pulse Oximeter Temp 97.7 F Temp Source Temporal Artery Scan Pulse Oximetry (%) 98 Oxygen Delivery Method Room Air Intake Visit Reasons: laryngitis Intake Note: Pt prevents to the office today for laryngitis that started a week ago. She denies any fever. Pt states she does have a cough occasionally. Pt states her was diagnosed with pneumonia about 2 weeks ago. Allergies latex Allergy (Unknown, Verified 02/25/24 11:39) rash Tobacco use date assessed: 01/13/24 Dental Screening Dental Screen Date: 01/13/24 HPI laryngitis HPI Details Pt presents today with complaints of a laryngitis. Reports a cough. Reports mild sore throat. Denies any breathing difficulties. She denies any fevers, chills, nasal congestion. She reports diagnosed with pneumonia about 2 weeks ago. [facility] Surgical History History of colonoscopy History of section Family History Father Colon cancer AAA (abdominal aortic aneurysm) Mother AAA (abdominal aortic aneurysm) HTN (hypertension) Brother No problems noted. Brother No problems noted. Sister No problems noted. Son No problems noted. Daughter No problems noted. 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 Abelardo Youssef, Rita Warner, Reynold Jackson and colleagues, with an educational ezio from [employer]. Review of Systems Const Denies fatigue, Denies fever(s), Denies headache(s) and Denies weakness ENT Denies dizziness, Denies headache(s) and Reports sore throat Card Denies dyspnea Resp Reports cough, Denies dyspnea and Denies wheezing Musc Denies numbness and Denies tingling Neuro Denies dizziness, Denies headache(s), Denies numbness, Denies tingling and Denies weakness Psych Denies anxiety and Denies depression Endo Denies fatigue Aller/Immun Denies wheezing Physical exam (Primary Care) Vital Signs: Last Vital Signs Pulse 66 02/25/24 11:38 BP 130/82 02/25/24 11:38 Pulse Ox 98 02/25/24 11:38 Oxygen Delivery Method Room Air 02/25/24 11:38 BMI result Body Mass Index 29.6 Tobacco/Smoking Status: Tobacco use Status Tobacco use date assessed 01/13/24 02/25/24 11:41 Patient Tobacco Use Status Former Tobacco user 02/25/24 11:41 e-Cigarette/Vaping Use Never Used 02/25/24 11:41 Const General: well developed; No acute distress Nutritional Appearance: well nourished Orientation/consciousness: patient oriented x3 HENMT Head: Yes normocephalic and Yes atraumatic Eyes General: appearance normal, both eyes and all related structures Pupils: Equal, round and reactive pupils present EOM: EOMs intact bilaterally Resp Effort & Inspection: normal respiratory effort Neuro General: patient oriented x3 and gait normal Cranial nerves: Yes Equal, round and reactive pupils present Psych Affect: normal affect Assessment and Plan Assessment & Plan (1) Laryngitis: Code(s): J04.0 - Acute laryngitis Plan: Recurrent?laryngitis. Likely?secondary?to?a?viral?illness Hydrate?well Warm?saltwater?gargles Nasal?saline Patient?has?had?recurrent?bouts?of?laryngitis?however. Possible?GERD - trial?famotidine Referred?to?ENT?at?patient?request (2) Viral illness: Code(s): B34.9 - Viral infection, unspecified Plan: As?above Also?checking?COVID/flu/RSV Orders: Orders SARS-CoV2/FLU/RSV Today J04.0 - Acute laryngitis, Z20.822 - Contact with and (suspected) exposure to COVID-19 Referrals Ear/Nose/Throat Referral J04.0 - Acute laryngitis Medications: New famotidine 40 mg PO BEDTIME 30 days 30 tabs 0RF Coding Level of Care Code Est Pt Level 3 (10242) Diagnoses Laryngitis J04.0 Viral illness B34.9
[2024-02-25 11:38] VITALS: BP 130/82; PULSE 66; TEMP 36.5; O2SAT 98; BMI 29.6
== END 2024-02-25 12:28 | disposition home or self-care (01) ==
PROVIDERS: PCP Family Medicine; Visit Provider Family Medicine
DX: J04.0 Acute laryngitis (principal); B34.9 Viral infection, unspecified
CPT/HCPCS: 99213

== ENCOUNTER 2024-02-25 12:29 | Outpatient (REF) | payer OTHER, SELFPAY ==
[2024-02-25 14:41] LABS: Influenza A PCR NEGATIVE (Negative); Influenza B PCR NEGATIVE (Negative); Resp Syncy Virus RNA Qual PCR NEGATIVE (Negative); SARS COV2 PCR INHOUSE NEGATIVE (Negative)
== END 2024-02-25 12:30 | disposition home or self-care (01) ==
LOC: HO.LAB 12:29
PROVIDERS: Visit Provider Family Medicine
DX: Z20.822 Contact with and (suspected) exposure to COVID-19 (principal); J04.0 Acute laryngitis
CPT/HCPCS: 0241U

== ENCOUNTER 2024-03-13 09:54 | Outpatient (AMB) | payer OTHER, SELFPAY ==
--- OUTSIDE RECORDS SUMMARY | 2024-03-13 09:56 | XMS_ITS | Continuity of Care Document ---
Author Organization [facility] ter Address [address] [place] [id number]- Care Team Providers Care Fight Manager Name Role Phone Leo Cano DO Primary Care Physician Encounter [facility] Date(s): 09/12/19 - 09/12/[address] [id number]- [facility] Attending Physician: Not on Staff, Attending
--- OUTSIDE RECORDS SUMMARY | 2024-03-13 09:56 | XMS_ITS | Continuity of Care Document ---
Author Organization [facility] ter Address [address] [place] [id number]- Care Team Providers Care Bunk Assembler Name Role Phone Ricardo JORGE, Sander Andrews Primary Care Physician Encounter [facility] Date(s): 02/27/21 - 06/01/[address] [id number] Attending Physician: Aidan Wang MD Admitting Physician: Aidan Wang MD Referring Physician: Aidan Wang MD Immunizations Given and Recorded Vaccine Date Status Refusal Reason SARS-CoV-2 (COVID-19) mRNA BNT-162b2 vac 11/05/20 Given SARS-CoV-2 (COVID-19) mRNA BNT-162b2 vac 10/15/20 Given
--- NOTE | 2024-03-13 10:19 | AM.OFFWIN_ITS ---
Intake Vital Signs 03/13/24 10:41 Height 5 ft 5.4 in Weight 180 lb BMI 29.6 BP 122/86 Blood Pressure Location Rt brachial Position Sitting Pulse 67 Pulse Source Pulse Oximeter Temp 98.3 F Temp Source Oral Pulse Oximetry (%) 96 Oxygen Delivery Method Room Air Intake Visit Reasons: Laryngitis Intake Note: pt c/o Laryngitis. Started 24 days ago Patient Tobacco Use Status: Former Tobacco user Allergies latex Allergy (Unknown, Verified 03/13/24 10:33) rash Do you need a note to return to daycare/school/sports/work: No HPI Laryngitis HPI Details This note is constructed using voice recognition software. While every effort has been made to ensure accuracy, family resource management professor errors may have been included. The patient is a 63 year old female who presents to the clinic today with complaints of laryngitis for the past 24 days. She was seen one-week after symptom onset by her primary care provider, and advised that she likely had a viral etiology. She has continued to have symptoms since then. She has tried her normal allergy medication including Flonase, she was advised to try Pepcid for any acid reflux contribution, has tried sinus rinse. She has had no improvement in symptoms with any of these treatments. She had a similar episode back in 2021 and had been seen by ear nose and throat at that time with camera evaluation showing some inflammation. She had treatment at that time with oral prednisone. She denies fever, chills, dyspnea. She has cough thin yellow secretions. She is pending repeat referral to ENT, however does not have an appointment yet. [facility] Surgical History History of colonoscopy History of section Family History Father Colon cancer AAA (abdominal aortic aneurysm) Mother AAA (abdominal aortic aneurysm) HTN (hypertension) Brother No problems noted. Brother No problems noted. Sister No problems noted. Son No problems noted. Daughter No problems noted. 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 Current occupational exposures/hazards: No Cognitive needs: No Hearing needs: No Vision needs: No Review of Systems Const All systems reviewed & are unremarkable except as noted in HPI and below Physical Exam Vital Signs: Last Vital Signs Temp 98.3 F 03/13/24 10:41 Pulse 67 03/13/24 10:41 BP 122/86 03/13/24 10:41 Pulse Ox 96 03/13/24 10:41 Oxygen Delivery Method Room Air 03/13/24 10:41 BMI result Body Mass Index 29.6 Const General: cooperative, healthy appearing, comfortable and no acute distress Orientation/consciousness: patient oriented x3 Limitations: no limitations HEENT Head: Yes normal to inspection Ears: hearing grossly normal bilaterally, external ears normal and TM's normal bilaterally General nose exam: Normal external nose present, Normal nares present and No nasal discharge present Face and sinus: Yes normal facial exam and Yes sinuses nontender Mouth: Normal oral and palatal mucosa present and moist mucous membranes Throat: Yes posterior oropharynx normal, Yes tonsils normal and Yes uvula midline Eyes General: appearance normal, both eyes and all related structures Neck Neck: Yes normal visual inspection Resp Effort & Inspection: normal respiratory effort, able to speak in complete sentences, Actively coughing, no respiratory distress, not tachypneic, no tripod positioning and no use of accessory muscles Auscultation: rhonchi and wheezes Cardio Jugular venous distension: no JVD Rate: regular rate Rhythm: regular rhythm Heart sounds: S1 normal heart sound present, S2 normal heart sound present, no click, no gallops, no murmurs and no rubs Skin General skin exam: no rashes or lesions noted, elasticity normal and turgor normal Neuro General: patient oriented x3 Extrem General: Yes normal to inspection and Yes no clubbing, cyanosis or edema Assessment & Plan Assessment & Plan (1) Laryngitis: Code(s): J04.0 - Acute laryngitis Plan: Etiology likely initially due to viral illness, supportive measures encouraged and reviewed. Advised ENT referral as previously planned. (2) Cough: Code(s): R05 - Cough Qualifiers: Cough type: subacute Qualified Code(s): R05.2 - Subacute cough Plan: Likely initially secondary to viral illness, however given the ongoing symptoms and physical examination, x-ray ordered to evaluate. Prednisone with taper ordered for symptomatic management as well as albuterol inhaler for concern of asthma type response. Advised patient to follow up with worsening symptoms or failure to resolve. Chest x-ray reviewed by me, no obvious acute process, awaiting official radiology reading. Plan See above for full details and plan. Orders: Orders XR chest 2V Today R05.9 - Cough, unspecified Medications: New prednisone see taper instructions: 5 pills daily for 2 days, then 4 pills daily for 2 days, then 3 pills daily for 2 days, then 2 pills daily for 2 days, then 1 pill daily for 2 days. 10 mg PO DIRECTED 30 tabs 0RF albuterol sulfate 90 mcg/actuation 1 to 2 puffs inhaled 4 times a day PRN; 6.7 grams 0RF shortness of breath or wheezing Coding Level of Care Code Est Pt Level 4 (73756) Diagnoses Laryngitis J04.0 Subacute cough R05.2 Cough type: subacute
[2024-03-13 10:41] VITALS: BP 122/86; PULSE 67; TEMP 36.8; O2SAT 96; BMI 29.6
== END 2024-03-13 11:28 | disposition home or self-care (01) ==
PROVIDERS: PCP Family Medicine; Visit Provider Registered Nurse
DX: J04.0 Acute laryngitis (principal); R05.2 Subacute cough
CPT/HCPCS: 99214

== ENCOUNTER 2024-03-13 11:12 | Outpatient (REF) | payer OTHER, SELFPAY ==
--- NOTE | ~2024-03-13 | XR_ITS ---
EXAMINATION: XR CHEST CLINICAL INFORMATION: Cough. COMPARISON: 04/28/2022 TECHNIQUE: 2 views of the chest were obtained. FINDINGS: The lungs are well expanded. No focal consolidation. No pleural effusion. Cardiac silhouette is within normal limits. XR/XR chest 2V IMPRESSION: No acute abnormality.
== END 2024-03-13 11:13 | disposition home or self-care (01) ==
LOC: HO.HMGCX 11:12
PROVIDERS: PCP Family Medicine; Visit Provider Registered Nurse
DX: R05.9 Cough, unspecified (principal)
CPT/HCPCS: 71046

== ENCOUNTER 2024-04-13 12:33 | Outpatient (REF) | payer OTHER, SELFPAY ==
[2024-04-13 17:37] LABS: Appearance Urine Cloudy; Color Urine Yellow; Glucose Urine UA Negative (Negative); Leukocyte Esterase Urine Large (3+) (Negative); Nitrite Urine Negative (Negative); PH 5.5 (5.0-9.0); UMIC TRIGGER UA YES; Urine Blood Small (1+) (Negative); Urine Ketones Negative (Negative); Urine Protein Negative (Neg-Trace)
[2024-04-13 17:59] LABS: Bacteria Urine 4+ (None Seen); Hyaline Casts Urine 0-2 /LPF (0-2); RBC Urine 0-2 /HPF (0-2); Squamous Epithelial Cell Urine 0-2 /HPF (0-2); WBC Urine >50 /HPF (0-5)
== END 2024-04-13 12:34 | disposition home or self-care (01) ==
LOC: HO.LAB 12:33
PROVIDERS: Visit Provider Family Medicine
DX: Z00.00 Encounter for general adult medical examination without abnormal findings (principal); N39.0 Urinary tract infection, site not specified
CPT/HCPCS: 81001; 87086; 87088; 87186

== ENCOUNTER 2024-05-05 09:27 | Outpatient (REF) | payer OTHER, SELFPAY ==
[2024-05-05 11:05] LABS: MANUAL DIFF FLAG NO
[2024-05-05 11:18] LABS: Basophils Percent Auto 0.5 % (0-2); Eosinophils Absolute Auto 0.2 X10*3/uL (0.0-0.4); Eosinophils Percent Auto 3.3 % (0-4); Hemoglobin 12.6 g/dl (12.0-16.0); Imm Gran Abs Auto 0.03 X10*3/uL (0.00-0.03); Imm Gran Pct Auto 0.5 % (0.0-0.4); Lymphocytes Absolute Auto 2.1 X10*3/uL (1.2-4.9); Lymphocytes Percent Auto 31.9 % (20-40); Mean Corpuscular HGB Conc 33.2 g/dl (31.0-35.0); Mean Corpuscular Hemoglobin 30.3 pg (27.0-33.0); Mean Corpuscular Volume 91.3 fL (80.0-98.0); Mean Platelet Volume 10.6 fL (9.4-12.3); Monocytes Absolute Auto 0.7 X10*3/uL (0.1-1.2); Monocytes Percent Auto 10.2 % (2-11); Neutrophils Absolute Auto 3.6 x10*3/uL (2.0-8.3); Neutrophils Percent Auto 53.6 % (45-73); Platelet Count 237 X10*3/uL (160-400); Red Blood Count 4.16 X10*6/uL (4.20-5.50); Red Cell Distribution Width 14.6 % (11.0-16.0); White Blood Count 6.7 X10*3/uL (4.8-10.8)
[2024-05-05 11:32] LABS: Appearance Urine Clear; Color Urine Yellow; Glucose Urine UA Negative (Negative); Leukocyte Esterase Urine Negative (Negative); Nitrite Urine Negative (Negative); PH 5.5 (5.0-9.0); Urine Blood Negative (Negative); Urine Ketones Negative (Negative); Urine Protein Negative (Neg-Trace)
[2024-05-05 12:21] LABS: Alanine Aminotransferase 20 U/L (0-31); Albumin Level 4.3 g/dL (3.5-5.0); Alkaline Phosphatase 68 U/L (39-117); Anion Gap 11 (12-20); Aspartate Amino Transferase 23 U/L (5-31); Bilirubin Total 0.4 mg/dL (0.0-1.0); Blood Urea Nitrogen 15 mg/dL (9-16); Calcium 9.8 mg/dL (8.4-10.2); Carbon Dioxide 27 mmol/L (22-29); Chloride 107 mmol/L (96-108); Cholesterol 228 mg/dL (<200); Estimated Glomerular Filt Rate > 60; Glucose Fasting 91 mg/dL (60-99); HDL Cholesterol 76 mg/dL (>40); LDL Cholesterol Calculated 132 mg/dL (<100); Sodium 141 mmol/L (135-145); Total Protein 7.2 g/dL (6.5-8.0); Triglycerides 101 mg/dL (<150)
[2024-05-05 12:41] LABS: TSH reflex Free T4 1.76 uIU/mL (0.32-4.0)
== END 2024-05-05 09:28 | disposition home or self-care (01) ==
LOC: HO.WFDLDS 09:27
PROVIDERS: Visit Provider Family Medicine
DX: Z00.00 Encounter for general adult medical examination without abnormal findings (principal)
CPT/HCPCS: 36415; 80053; 80061; 81003; 84443; 85025

== ENCOUNTER 2024-05-17 09:37 | Outpatient (AMB) | payer OTHER, SELFPAY ==
--- NOTE | 2024-05-17 09:43 | A.OFFPC_ITS ---
Vital Signs 05/17/24 09:48 Height 5 ft 5.4 in Weight 180 lb 2 oz BMI 29.6 BP 170/90 H Blood Pressure Location Rt brachial Position Sitting Respiration 16 Pulse 59 Pulse Source Pulse Oximeter Temp 97.9 F Temp Source Temporal Artery Scan Pulse Oximetry (%) 98 Oxygen Delivery Method Room Air Intake Visit Reasons: CPE with f/u labs and health maint. 30 mins Intake Note: CPE Is last menstrual period known: No Post menopausal: Yes Patient : No Allergies latex Allergy (Unknown, Verified 05/17/24 09:44) rash Medication List - Last Reconciled 05/17/24 by Sander Silva MD albuterol sulfate 90 mcg/actuation 1 to 2 puffs inhaled 4 times a day PRN; clobetasol 0.05% 1 appl topical BID clobetasol 0.05% mL topical BEDTIME fluticasone propionate 50 mcg/actuation (Flonase Allergy Relief) 1 spray intranasal Q12H 30 days losartan 25 mg PO DAILY 90 days simvastatin 20 mg PO BEDTIME Tobacco use date assessed: 01/13/24 Dental Screening Dental Screen Date: 01/13/24 HPI CPE with f/u labs and health maint. 30 mins HPI Details 63 y/o female presents for a CPE with f/ u labs and health maintenance. Labs drawn 05/05/24. Reviewed labs with pt. Triglycerides 101. TC 228. LDL 132. HDL 76. She is on simvastatin 20mg. Blood pressure today 170/90. She is on losartan 25mg daily. She has not taken her losartan this morning. Denies any chest pain, shortness of breath, dizziness, vision changes. She notes she has her colonoscopy every 5 years. Last one about 3 years ago per pt - Dr. Ch. Up to date with her health maintenance. HPI Comments History of Present Illness Details Documentation assistance for Sander Silva MD, was provided by Jayden Hodgson, Milling Machine Set Up Operator on 05/17/2024 at 10:00 AM BOB. Pamela, Dr. Silva, have read, observed, and verified documentation. [facility] Surgical History History of colonoscopy History of section Family History Father Colon cancer AAA (abdominal aortic aneurysm) Mother AAA (abdominal aortic aneurysm) HTN (hypertension) Brother No problems noted. Brother No problems noted. Sister No problems noted. Son No problems noted. Daughter No problems noted. 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 1. Little interest or pleasure in doing things: not at all 2. Feeling down, depressed, or hopeless: not at all 3. Trouble falling or staying asleep, or sleeping too much: not at all 4. Feeling tired or having little energy: not at all 5. Poor appetite or overeating: not at all 6. Feeling bad about yourself - or that you are a failure or have let yourself or your family down: not at all 7. Trouble concentrating on things, such as reading the newspaper or watching television: not at all 8. Moving or speaking so slowly that other people could have noticed. Or the opposite - being so fidgety or restless that you have been moving around a lot more than usual: not at all 9. Thoughts that you would be better off or of hurting yourself in some way: not at all Total score: 0 Depression Screening Interpretation: Negative Depression Screening Done: Yes 53329 - PHQ-9 Billing: Yes Source: Developed by Drs. Abelardo Youssef, Rita Warner, Reynold Jackson and colleagues, with an educational ezio from [employer]. Thrive Questionnaire Date Thrive assessed: 05/17/24 I am a: Patient What is your living situation today?: I have a steady place to live Within the past 12 months, did the food you bought not last and you didn't have the money to get more?: Never true Within the past 12 months, did you worry whether your food would run out before you got money to buy more?: Never true Do you have trouble paying for medicines?: No Do you have trouble getting transportation to medical appointments?: No Do you have trouble paying your heating and electricity bill?: No Do you have trouble taking care of your child, family member or friend?: No Do you have trouble with day-to-day activities such as bathing, preparing meals, shopping, managing finances, etc.?: No Are you currently unemployed and looking for a job?: No Are you interested in more education?: No Please select the resources that you would like help with: None Currently or been in a relationship where the following occur: No concerns reported THRIVE Score: 0 AUDIT C Alcohol Use Questionnaire (AUDIT-C) 1. How often do you have a drink containing alcohol?: Monthly or less 2. How many drinks containing alcohol do you have on a typical day when you are drinking?: 1 or 2 3. How often do you have six or more drinks on one occasion?: Never Total Score: 1 ILIANA-7 AMB Questionnaire ILIANA-7 Date ILIANA - 7 assessed: 05/17/24 Feeling nervous, anxious, or on edge: 0 = Not at all Not being able to stop or control worryin = Not at all Worrying too much about different things: 0 = Not at all Trouble relaxin = Not at all Being so restless that it is hard to sit still: 0 = Not at all Becoming easily annoyed or irritable: 0 = Not at all Feeling afraid as if something awful might happen: 0 = Not at all Total ILIANA-7 score (0-4 normal; 5-9 mild; 10-14 moderate; 15-21 severe): 0 Source: Developed by Drs. Abelardo Youssef, Rita Warner, Reynold Jackson and colleagues, with an educational ezio from [employer]. ILIANA-7 Assessment Billing ILIANA-7 Assessment Tool: ILIANA-7 Assessment 63178 Review of Systems Const Denies chills, Denies fatigue, Denies fever(s), Denies headache(s) and Denies weakness Eyes Denies change in vision ENT Denies dizziness, Denies headache(s), Denies hearing loss, Denies nasal conges tion, Denies sinus pain, Denies sinus pressure and Denies sore throat Card Denies chest pain, Denies lightheadedness, Denies dyspnea and Denies other (palpitations) Resp Denies cough, Denies dyspnea and Denies wheezing GI Denies abdominal pain, Denies melena, Denies hematochezia, Denies change in bowel habits, Denies dyspepsia and Denies nausea Denies hematuria and Denies dysuria Musc Denies abnormal gait, Denies myalgias, Denies arthralgias, Denies numbness and Denies tingling Skin/Breast Denies rash, Denies unusual bruising and Denies wounds Neuro Denies abnormal gait, Denies dizziness, Denies headache(s), Denies memory loss, Denies numbness, Denies Sensory deficit (Neuro), Denies tingling and Denies weakness Psych Denies anxiety, Denies depression and Denies memory loss Endo Denies cold intolerance, Denies fatigue, Denies heat intolerance, Denies polydipsia and Denies polyuria Mingo/Lymph Denies easy bleeding and Denies easy bruising Aller/Immun Denies wheezing Physical exam (Primary Care) Vital Signs: Last Vital Signs Temp 97.9 F 05/17/24 09:48 Pulse 59 05/17/24 09:48 Resp 16 05/17/24 09:48 BP 170/90 H 05/17/24 09:48 Pulse Ox 98 05/17/24 09:48 Oxygen Delivery Method Room Air 05/17/24 09:48 BMI result Body Mass Index 29.6 Tobacco/Smoking Status: Tobacco use Status Tobacco use date assessed 01/13/24 05/17/24 09:49 Patient Tobacco Use Status Former Tobacco user 05/17/24 09:49 e-Cigarette/Vaping Use Never Used 05/17/24 09:49 PHQ-9: PHQ-9 Score PHQ-9: Total score 0 05/17/24 10:00 Depression Screening Interpretation: Negative Thrive Assessment: Date of Thrive Assessment Date Thrive assessed 05/17/24 05/17/24 09:49 Currently or been in a relationship where the following occur: No concerns reported Const General: no acute distress, well developed, alert and awake Nutritional Appearance: well nourished Orientation/consciousness: patient oriented x3 HENMT Head: Yes normocephalic and Yes atraumatic Ears: hearing grossly normal bilaterally and TM's normal bilaterally General nose exam: Normal external nose present and Normal nares present Mouth: Normal oral and palatal mucosa present and moist mucous membranes Teeth and gingiva: dentition normal Throat: Yes posterior oropharynx normal Eyes General: appearance normal, both eyes and all related structures Pupils: Equal, round and reactive pupils present and Pupil accommodation reflex normal EOM: EOMs intact bilaterally Neck Neck: Yes normal visual inspection, Yes no lymphadenopathy and Yes trachea midline Thyroid: Thyroid normal Carotids: no bruits Lymphatic: no lymphadenopathy noted Chest Chest palpation & inspection: normal inspection of the chest Resp Effort & Inspection: normal respiratory effort Auscultation: clear to auscultation bilaterally Cardio Rate: regular rate Rhythm: regular rhythm Heart sounds: S1 normal heart sound present, S2 normal heart sound present, no gallops, no murmurs and no rubs Bruits: no abdominal aortic bruits and no carotid bruits GI Palpation (GI): No Abdominal aortic bruit present, Soft to palpation, nontender, No hepatosplenomegaly present and No Rebound tenderness present Auscultation: normal bowel sounds General: Yes no CVA tenderness Back/Spine/Pelvis Back: no CVA tenderness Cervical Spine: cervical ROM normal and No Cervical spine tenderness Thoracic/Lumbar Spine: thoraco-lumbar ROM normal, No pain with thoraco-lumbar ROM, No thoracic spinal tenderness and No lumbar spinal tenderness Skin Lesions: no lesions Rashes: no rashes Trauma: no lacerations or abrasions Wounds: no wounds Nails: normal Neuro General: patient oriented x3 Cranial nerves: Yes Equal, round and reactive pupils present Cognition (Neuro): normal cognition Gait exam (Neuro): Normal gait present Motor exam (neuro): 5/5 motor strength present throughout Sensory Exam: No Sensory deficit (Neuro) Deep tendon reflexes (DTR's): Right patellar reflex intensity grade: 2+ and Left patellar reflex intensity grade: 2+ Extrem General: Yes normal to inspection and No edema Psych Appearance: grossly normal Affect: normal affect Attitude: cooperative Thought process: Normal thought process present Coding Level of Care Code Est Pt Level 3 (49764) Est Pt Prev Care 40-64y(91137) Diagnoses Adult general medical exam Z00.00 Hyperlipidemia E78.5 Essential hypertension I10 Screening for breast cancer Z12.39 Cerumen debris on tympanic membrane H61.20 Screening for colon cancer Z12.11 Screening for cervical cancer Z12.4 Additional Codes ILIANA-7 Assessment Billing - ILIANA-7 Assessment Tool: ILIANA-7 Assessment 21072 ([id number]) Assessment & Plan Assessment & Plan (1) Adult general medical exam: Code(s): Z00.00 - Encounter for general adult medical examination without abnormal findings Category: Medical Plan: 63-year-old?female?presents?for?complete?physical?exam Encouraged?healthy?diet?with?active?lifestyle?and?plenty?of?exercise (2) Hyperlipidemia: Code(s): E78.5 - Hyperlipidemia, unspecified Category: Medical Plan: LDL?cholesterol?is?above?goal?of?less?than?100 She?is?taking?simvastatin?20?mg?daily Will?change?this?to?atorvastatin?20?mg?daily?and?recheck?in?a?few?months Also?encouraged?lifestyle?changes (3) Essential hypertension: Code(s): I10 - Essential (primary) hypertension Category: Medical Plan: Blood?pressure?is?too?high?today?but?patient?has?not?taken?her?medication?yet.?? Goal?is?less?than?140/90 She?has?a?log?of?her?blood?pressures?from?this?week?and?all?are?at?goal Continue?current?medication.??Take?medication?today?as?soon?as?you?are?able. Asked?patient?to?call?with?blood?pressure? tomorrow?after?she?has?taken?her?medication. (4) Screening for breast cancer: Code(s): Z12.39 - Encounter for other screening for malignant neoplasm of breast Category: Medical Plan: Last?mammogram?was?in?June?and?she?has?her?next?appointment?scheduled. Up-to-date (5) Cerumen debris on tympanic membrane: Code(s): H61.20 - Impacted cerumen, unspecified ear Category: Medical Plan: She?can?use?Debrox?drops (6) Screening for colon cancer: Code(s): Z12.11 - Encounter for screening for malignant neoplasm of colon Category: Medical Plan: Patient?had?last?colonoscopy?about?3?years?ago?with?. She?is?followed?every?5?years?for?strong?family?history?of?colon?cancer Up-to-date Follow-up?with?corporate concierge?as?recommended (7) Screening for cervical cancer: Code(s): Z12.4 - Encounter for screening for malignant neoplasm of cervix Category: Medical Plan: Followed?by??and?seen?annually?for?rn obgyn?care Follow-up?with?rn obgyn?as?recommended Orders: Orders Comprehensive [place]. Panel Fast Today E78.5 - Hyperlipidemia, unspecified, Z00.00 - Encounter for general adult medical examination without abnormal findings Lipid Panel Today E78.5 - Hyperlipidemia, unspecified, Z00.00 - Encounter for general adult medical examination without abnormal findings Medications: New blood pressure monitor Automatic, Digital. Dx: I10. Daily As directed, 999 days/lifetime 1 ea 0RF I10 - Essential (primary) hypertension atorvastatin 20 mg PO DAILY 90 days 90 tabs 3RF Discontinued simvastatin Discontinued Reason: Doctor's Order 20 mg PO BEDTIME 90 tabs 1RF
[2024-05-17 09:48] VITALS: BP 170/90; PULSE 59; RESP 16; TEMP 36.6; O2SAT 98; BMI 29.6
== END 2024-05-17 10:30 | disposition home or self-care (01) ==
PROVIDERS: PCP Family Medicine; Visit Provider Family Medicine
DX: Z00.00 Encounter for general adult medical examination without abnormal findings (principal); E78.5 Hyperlipidemia, unspecified; I10 Essential (primary) hypertension; Z12.39 Encounter for other screening for malignant neoplasm of breast; Z12.11 Encounter for screening for malignant neoplasm of colon

== ENCOUNTER → 2024-05-17 09:37 | Outpatient (BNVA) | payer OTHER, SELFPAY | PROVIDERS: PCP Family Medicine; Visit Provider Family Medicine | DX: Z00.00 Encounter for general adult medical examination without abnormal findings (principal); E78.5 Hyperlipidemia, unspecified; I10 Essential (primary) hypertension; Z79.899 Other long term (current) drug therapy; Z23 Encounter for immunization | CPT/HCPCS: 90471; 90656; 96127 ==

== ENCOUNTER → 2024-06-22 09:54 | Outpatient (BNVA) | payer SELFPAY | PROVIDERS: PCP Family Medicine; Visit Provider Physician Assistant Medical | DX: Z02.79 Encounter for issue of other medical certificate (principal) ==

== ENCOUNTER 2024-08-24 09:56 | Outpatient (REF) | payer SELFPAY ==
[2024-08-24 12:21] LABS: Alanine Aminotransferase 25 U/L (0-31); Albumin Level 4.2 g/dL (3.5-5.0); Alkaline Phosphatase 68 U/L (39-117); Anion Gap 8 (12-20); Aspartate Amino Transferase 29 U/L (5-31); Bilirubin Total 0.5 mg/dL (0.0-1.0); Blood Urea Nitrogen 17 mg/dL (9-16); Calcium 9.5 mg/dL (8.4-10.2); Carbon Dioxide 29 mmol/L (22-29); Chloride 109 mmol/L (96-108); Cholesterol 204 mg/dL (<200); Estimated Glomerular Filt Rate > 60; Glucose Fasting 92 mg/dL (60-99); HDL Cholesterol 77 mg/dL (>40); LDL Cholesterol Calculated 115 mg/dL (<100); Potassium 4.4 mmol/L (3.3-5.1); Sodium 142 mmol/L (135-145); Total Protein 7.2 g/dL (6.5-8.0); Triglycerides 64 mg/dL (<150)
== END 2024-08-24 09:57 | disposition home or self-care (01) ==
LOC: HO.WFDLDS 09:56
PROVIDERS: Visit Provider Family Medicine
DX: Z00.00 Encounter for general adult medical examination without abnormal findings (principal); E78.5 Hyperlipidemia, unspecified
CPT/HCPCS: 36415; 80053; 80061

== ENCOUNTER 2024-11-09 10:21 | Outpatient (REF) | payer OTHER, SELFPAY ==
--- NOTE | ~2024-11-09 | XR_ITS ---
EXAMINATION: XR CHEST CLINICAL INFORMATION: J06.9 - Acute upper respiratory infection, unspecified COMPARISON: 03/13/2024, 04/28/2022. TECHNIQUE: 2 views of the chest were obtained. FINDINGS: The cardiac, hilar, and mediastinal contours are normal. The lungs are clear bilaterally. There is no pneumothorax or pleural effusion. There is no focal osseous or soft tissue abnormality. XR/XR chest 2V IMPRESSION: No active disease or interval change. Electronically signed by: Víctor Forbes MD 11/09/2024 11:40 AM EDT
== END 2024-11-09 10:22 | disposition home or self-care (01) ==
LOC: HO.HMGCX 10:21
PROVIDERS: PCP Family Medicine; Visit Provider Nurse Practitioner Family
DX: J06.9 Acute upper respiratory infection, unspecified (principal)
CPT/HCPCS: 71046; 81003

== ENCOUNTER 2024-11-09 10:21 | Outpatient (AMB) | payer OTHER, SELFPAY ==
[2024-11-09 10:26] VITALS: BP 150/80; PULSE 62; TEMP 36.8; O2SAT 98; BMI 29.6
--- NOTE | 2024-11-09 10:26 | AM.OFFWIN_ITS ---
Intake Vital Signs 11/09/24 10:26 Height 5 ft 5.4 in Weight 180 lb BMI 29.6 BP 150/80 H Blood Pressure Location Lt brachial Position Sitting Pulse 62 Pulse Source Pulse Oximeter Temp 98.2 F Temp Source Oral Pulse Oximetry (%) 98 Intake Visit Reasons: EP severe cough, fever Patient Tobacco Use Status: Former Tobacco user Allergies latex Allergy (Unknown, Verified 11/09/24 10:26) rash HPI HPI Comments History of Present Illness Details 64 y/o Female patient who presents to [facility] walk in clinic with c/o URI symptoms for few days. Reports Cough and Subjective fevers at home. She has npt taken any OTC medications. Pt also c/o Urinary symptom - Cloudy urine with Foul Smell. Pt asking for Urine Test, because she thinks she might have UTI. [facility] Medical History (Updated 11/09/24 @ 10:52 by Taylor Wallace NP) Cloudy urine Acute respiratory disease Surgical History History of colonoscopy History of section Family History Father Colon cancer AAA (abdominal aortic aneurysm) Mother AAA (abdominal aortic aneurysm) HTN (hypertension) Brother No problems noted. Brother No problems noted. Sister No problems noted. Son No problems noted. Daughter No problems noted. 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 Current occupational exposures/hazards: No Cognitive needs: No Hearing needs: No Vision needs: No Review of Systems Const All systems reviewed & are unremarkable except as noted in HPI and below Physical Exam Vital Signs: Last Vital Signs Temp 98.2 F 11/09/24 10:26 Pulse 62 11/09/24 10:26 BP 150/80 H 11/09/24 10:26 Pulse Ox 98 11/09/24 10:26 BMI result Body Mass Index 29.6 Const General: no acute distress Nutritional Appearance: overweight Orientation/consciousness: patient oriented x3 HEENT Head: Yes normocephalic Ears: external ears normal and TM abnormal with fluid behind the TM General nose exam: Normal external nose present and Nasal discharge present Face and sinus: Yes sinuses nontender Mouth: moist mucous membranes Throat: Yes uvula midline Resp Effort & Inspection: normal respiratory effort Auscultation: no crackles, no rales, rhonchi and wheezes expiratory wheezes and lower bilaterally Cardio Rhythm: regular rhythm Heart sounds: S1 normal heart sound present and S2 normal heart sound present General: Yes no CVA tenderness Back/Spine/Pelvis Back: no CVA tenderness Neuro General: patient oriented x3 Results AMB Urinalysis, Automated UA Leukoctes 125 Cathleen/uL Last Edit by Grupo Alford CMA on 11/09/24 11:1 1 UA Nitrite Negative Last Edit by Grupo Alford CMA on 11/09/24 11:11 UA Urobilinogen 0.2 mg/dL Last Edit by Grupo Alford CMA on 11/09/24 11 :11 UA Protein 0 mg/dL Last Edit by Grupo Alford CMA on 11/09/24 11:11 UA pH 6.0 Last Edit by Grupo Alford CMA on 11/09/24 11:11 UA Blood 10 Rakan/uL Last Edit by Grupo Alford CMA on 11/09/24 11:11 UA Specific Murdock 1.005 Last Edit by Grupo Alford CMA on 11/09/24 11:11 UA Ketone Negative Last Edit by Grupo Alford CMA on 11/09/24 11:11 UA Bilirubin 0 mg/dL Last Edit by Grupo Alford CMA on 11/09/24 11:11 UA Glucose 0 mg/dL Last Edit by Grupo Alford CMA on 11/09/24 11:11 Assessment & Plan Assessment & Plan (1) Cough: Code(s): R05 - Cough Qualifiers: Cough type: subacute Qualified Code(s): R05.2 - Subacute cough Plan: Ordered Chest Xray OTC cough medicines such as Mucinex. Ordered Prednisone. (2) Acute respiratory disease: Code(s): J06.9 - Acute upper respiratory infection, unspecified Plan: Ordered SARs Rest and hydrate well with warm fluids. (3) Cloudy urine: Code(s): R82.90 - Unspecified abnormal findings in urine Plan: Ordered Urinalysis, Positive for Leuco Ordered Urine culture. Orders: Orders XR chest 2V Today J06.9 - Acute upper respiratory infection, unspecified SARS-CoV2/FLU/RSV Today J06.9 - Acute upper respiratory infection, unspecified UA CC w/rflx Micro + Cult Today R82.90 - Unspecified abnormal findings in urine Medications: New 2 prednisone 50 mg PO DAILY 5 days 5 tabs 0RF R82.90 - Unspecified abnormal findings in urine ciprofloxacin HCl 500 mg PO Q12H 5 days 10 tabs 0RF R82.90 - Unspecified abnormal findings in urine Coding Level of Care Code Est Pt Level 4 (74268) Diagnoses Subacute cough R05.2 Cough type: subacute Acute respiratory disease J06.9 Cloudy urine R82.90 Time Spent (min) 20
--- OUTSIDE RECORDS SUMMARY | 2024-11-09 12:12 | XMS_ITS | Data Portability ---
Author Organization [place] - [facility], Allergy Address [address] [address] Care Team Providers Care Apricot Packer Name Role Phone ROSANGELA FAYE Primary Care Provider Assessment Encounter Date Assessment Date Assessment LastModified by Organization Details LastModified Time 09/01/2024 09/01/2024 Intermittent episodes of cough triggered by a tickle in the throat leading to laryngitis. She now feels she is finally getting over her most recent episode. Fiberoptic laryngoscopy today was benign with no nodule, vocal cord hemorrhage, polyp or weakness of the larynx. Discussed additional sources of increased mucus from allergies, will consider allergy testing. Additional options to improve her vocal quality may include referral to voice therapy, she declines at this time [email or web address] Not available 09/01/2024 13:45:35 Plan of Treatment Reminders Order Date Submit Date Provider Last Modified By Organization Details Last Modified Time Details Appointments None recorded. Lab None recorded. Referral None recorded. Procedures allergy testing, skin prick (PROC) 2024 025 [email or web address] Not available 5 15:26:39 intraderma l allergy skin testing (PROC) 2024 025 [email or web address] Not available 5 15:26:39 pulmonary function test procedure (PROC) 2024 025 [email or web address] Not available 5 15:26:39 pulse oximetry (PROC) 2024 025 [email or web address] Not available 5 15:26:39 Surgeries None recorded. Imaging None recorded. Medication Orders None recorded. Patient TargetsNo targets recorded. Patient InstructionsNo instructions recorded. Reason for Referral None Reported. Problems Name Problem SNOMED Code Status Onset Date Resolution Date Notes Provider Name and Address Organization Details Recorded Time Chronic hoarseness 7694012202791 Active 2024 NAHEED JENNINGS MD [address] [address], [place], [address], [facility] 13:41:10 Allergic rhinitis 11572728 Active 2024 NAHEED JENNINGS MD [address] [place] [address], [place], [address], [facility] 13:41:23 Problem Notes None recorded. Procedures Surgical History Date Name Laterality Status Provider Name and Address Organization Details Recorded Time 09/01/2024 FOL_DP completed NAHEED JENNINGS MD [address] [place] [address], [place], [address], [facility] 09/01/2024 13:34:43 Imaging Results None recorded. Procedure Notes None recorded. Medical Equipment None Reported. Allergies No known drug allergies Medications Name Sig Start Date Stop Date Status Note LastModified by Organization Details LastModified Time prednisone 10 mg tablet PLEASE SEE ATTACHED FOR DETAILED DIRECTION S 09/01 completed Not Available Not Available Not Available atorvastati n 20 mg tablet TAKE 1 TABLET BY MOUTH EVERY DAY active Not Available Not Available No t Available famotidine 40 mg tablet TAKE 1 TABLET BY MOUTH AT BEDTIME 09/01 completed Not Available Not Available Not Available ketorolac 0.5 % eye drops INSTILL ONE DROP INTO LEFT EYE TWICE A DAY active Not Available Not Available No t Available prednisolon e acetate 1 % eye drops,suspe nsion LOCATION: LEFT EYE. APPLY ONE DROP IN THE LEFT EYE FOUR TIMES DAILY active Not Available Not Available No t Available simvastatin 20 mg tablet TAKE 1 TABLET ORALLY AT BEDTIME 09/01 completed Not Available Not Available Not Available losartan 25 mg tablet TAKE 1 TABLET BY MOUTH DAILY active Not Available Not Available No t Available albuterol sulfate HFA 90 mcg/actuati on aerosol inhaler INHALE 1 TO 2 PUFFS BY MOUTH NEEDED 4 TIMES DAILY FOR SHORTNESS OF BREATH 09/01 completed Not Available Not Available Not Available nitrofurant oin monohydrate /macrocryst als 100 mg capsule TAKE 1 CAPSULE BY MOUTH EVERY 12 HOURS FOR 7 DAYS MUST ADMINISTE R WITH A MEAL/FOOD 09/01 completed Not Available Not Available Not Available Vitals Date Recorded Body height Body mass index (BMI) Body weight Provider Name and Address Organization Details Last Updated DateTime 09/01/2024 162.56 cm 30.9 kg/m2 80694.63 g Rebeka Guyrina [place] - [facility] 09/01/2024 13:23:21 Social History None recorded. Functional Status None recorded. Mental Status None recorded. Family History Nothing Reported. Medical History Condition Response Hypertension Y Gynecological HistoryNo gynecological history recorded. Obstetrics History GPAL:G 0 P 0 0 0 0 Past Encounters Encounter ID Performer Location Encounter Start Date Encounter Closed Date Diagnosis/Indication Diagnosis SNOMED-CT Code Diagnosis ICD10 Code Diagnosis Note [id number] NAHEED JENNINGS MD [facility] [address] [address] 09/01/2024 13:05:57 09/01/2024 13:46:35 Chronic hoarseness 4524966026 105 R49.0 Allergic rhinitis 281901 04 J30.9 Health Concerns Section Related Observation LastModified by Organization Detai ls LastModified Time None Recorded Concern Status LastModified by Organization Details LastModified Time None Recorded Advance Directives Directive None Recorded Payers Encounter Date Sequence Insurance Name Policy Number Policy White Covered Member ID White Member ID Guarantor Name 09/01/[address] 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
== END 2024-11-09 11:13 | disposition home or self-care (01) ==
PROVIDERS: PCP Family Medicine; Visit Provider Nurse Practitioner Family
DX: R05.2 Subacute cough (principal); J06.9 Acute upper respiratory infection, unspecified; R82.90 Unspecified abnormal findings in urine; Z13.9 Encounter for screening, unspecified

== ENCOUNTER 2024-11-09 10:51 | Outpatient (REF) | payer OTHER, SELFPAY ==
[2024-11-09 13:51] LABS: Appearance Urine Clear; Color Urine Yellow; Glucose Urine UA Negative (Negative); Leukocyte Esterase Urine Large (3+) (Negative); Nitrite Urine Negative (Negative); PH 6.5 (5.0-9.0); Specific Gravity - Urine <= 1.005 (1.005-1.025); UMIC TRIGGER UACC YES; Urine Blood Trace (Negative); Urine Ketones Negative (Negative); Urine Protein Negative (Neg-Trace)
[2024-11-09 13:56] LABS: Bacteria Urine None Seen (None Seen); Hyaline Casts Urine 0-2 /LPF (0-2); RBC Urine 0-2 /HPF (0-2); Squamous Epithelial Cell Urine 0-2 /HPF (0-2); UACC Culture Trigger YES; WBC Urine 21-50 /HPF (0-5)
[2024-11-09 14:28] LABS: Influenza A PCR POSITIVE (Negative); Influenza B PCR NEGATIVE (Negative); Resp Syncy Virus RNA Qual PCR NEGATIVE (Negative); SARS COV2 PCR INHOUSE NEGATIVE (Negative)
== END 2024-11-09 10:52 | disposition home or self-care (01) ==
LOC: HO.LAB 10:51
PROVIDERS: Visit Provider Nurse Practitioner Family
DX: J06.9 Acute upper respiratory infection, unspecified (principal); R82.90 Unspecified abnormal findings in urine
CPT/HCPCS: 0241U; 81001; 87086; 87088; 87186

== ENCOUNTER → 2024-11-09 11:09 | Outpatient (BNV) | payer OTHER, SELFPAY | PROVIDERS: PCP Family Medicine; Visit Provider Radiology Diagnostic Radiology | DX: J06.9 Acute upper respiratory infection, unspecified (principal) | CPT/HCPCS: 71046 ==

== ENCOUNTER 2025-05-21 10:22 | Outpatient (REF) | payer OTHER, SELFPAY ==
[2025-05-21 14:30] LABS: Appearance Urine Clear; Glucose Urine UA Negative (Negative); PH 5.5 (5.0-9.0); Specific Gravity - Urine <= 1.005 (1.005-1.025)
[2025-05-21 14:36] LABS: MANUAL DIFF FLAG NO
[2025-05-21 14:53] LABS: Hematocrit 37.5 % (37.0-47.0); Hemoglobin 12.2 g/dl (12.0-16.0); Imm Gran Abs Auto 0.02 X10*3/uL (0.00-0.03); Imm Gran Pct Auto 0.3 % (0.0-0.4); Lymphocytes Absolute Auto 1.7 X10*3/uL (1.2-4.9); Mean Corpuscular HGB Conc 32.5 g/dl (31.0-35.0); Mean Corpuscular Hemoglobin 29.1 pg (27.0-33.0); Mean Corpuscular Volume 89.5 fL (80.0-98.0); NRBC Abs Auto 0.000 X10*3/uL (0.0-0.012); NRBC Pct Auto 0.0 /100WBC (0.0-0.2); Platelet Count 242 X10*3/uL (160-400); Red Blood Count 4.19 X10*6/uL (4.20-5.50); White Blood Count 6.3 X10*3/uL (4.8-10.8)
[2025-05-21 15:19] LABS: Alanine Aminotransferase 20 U/L (0-31); Albumin Level 4.5 g/dL (3.5-5.0); Alkaline Phosphatase 69 U/L (39-117); Anion Gap 11 (12-20); Aspartate Amino Transferase 29 U/L (5-31); Blood Urea Nitrogen 14 mg/dL (9-16); Calcium 9.6 mg/dL (8.4-10.2); Carbon Dioxide 27 mmol/L (22-29); Chloride 107 mmol/L (96-108); Cholesterol 196 mg/dL (<200); Estimated Glomerular Filt Rate > 60; HDL Cholesterol 71 mg/dL (>40); Potassium 4.0 mmol/L (3.3-5.1); Sodium 141 mmol/L (135-145); Total Protein 6.9 g/dL (6.5-8.0); Triglycerides 58 mg/dL (<150)
== END 2025-05-21 10:23 | disposition home or self-care (01) ==
LOC: HO.WFDLDS 10:22
PROVIDERS: Referring Provider Nurse Practitioner Family; Visit Provider Internal Medicine
DX: I10 Essential (primary) hypertension (principal); R74.8 Abnormal levels of other serum enzymes; R82.90 Unspecified abnormal findings in urine; E78.5 Hyperlipidemia, unspecified
CPT/HCPCS: 36415; 80053; 80061; 81003; 84443; 85025

== ENCOUNTER 2025-05-23 10:49 | Outpatient (AMB) | payer OTHER, SELFPAY ==
--- NOTE | 2025-05-23 11:25 | MHC.PC.OV ---
Vital Signs 05/23/25 11:33 Height 5 ft 5.4 in Weight 179 lb BMI 29.4 BP 136/70 Blood Pressure Location Lt brachial Position Sitting Respiration 16 Pulse 63 Pulse Source Pulse Oximeter Temp 98.1 F Temp Source Oral Pulse Oximetry (%) 97 Oxygen Delivery Method Room Air Intake Visit Reasons: CPE with f/u labs and health maint. Intake Note: patient is scheduled for cpe labs and health maintenance has been completed. [place] Required: No Allergies latex Allergy (Unknown, Verified 05/23/25 11:29) rash Medication List - Last Reconciled 05/23/25 by Sander Silva MD albuterol sulfate 90 mcg/actuation 1 to 2 puffs inhaled 4 times a day PRN; atorvastatin 20 mg PO DAILY 90 days blood pressure monitor Automatic, Digital. Dx: I10. Daily As directed, 999 days/lifetime clobetasol 0.05% mL topical BEDTIME fluticasone propionate 50 mcg/actuation (Flonase Allergy Relief) 1 spray intranasal Q12H 30 days losartan 25 mg PO DAILY 90 days Tobacco use date assessed: 05/23/25 Dental Screening Dental Screen Date: 05/23/25 Did you have a dental visit in the last 12 months?: Yes Did you have a dental problem in the last 6 months where you did not have access to dental care?: No Was dental information given to patient?: Yes HPI CPE with f/u labs and health maint. HPI Details 64 y/o female presents for a CPE with f/u labs and health maint. Labs drawn 05/21/25. Reviewed labs with pt. Triglycerides 58. TC 196. LDL 114. HDL 71. TSH 1.58. RBC mildly low at 4.19. Bone density test 2021 shows some osteopenia. Pt notes she has been working on getting good sources of calcium/exercise. Pt notes bilateral hip pain. Notes this worsens when she sits for long periods of time. 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 HPI Comments History of Present Illness Details Documentation assistance for Sander Silva MD, was provided by Jayden Hodgson,? Yard Supervisor [employer] on 05/23/2025 at 12:13 PM EST. I, Dr. Silva, have read, observed, and verified documentation. ?? [facility] Medical History Cloudy urine Acute respiratory disease Surgical History History of colonoscopy History of section Family History Father Colon cancer AAA (abdominal aortic aneurysm) Mother AAA (abdominal aortic aneurysm) HTN (hypertension) Brother No problems noted. Brother No problems noted. Sister No problems noted. Son No problems noted. Daughter No problems noted. 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 1. Little interest or pleasure in doing things: not at all 2. Feeling down, depressed, or hopeless: not at all 3. Trouble falling or staying asleep, or sleeping too much: not at all 4. Feeling tired or having little energy: not at all 5. Poor appetite or overeating: not at all 6. Feeling bad about yourself - or that you are a failure or have let yourself or your family down: not at all 7. Trouble concentrating on things, such as reading the newspaper or watching television: not at all 8. Moving or speaking so slowly that other people could have noticed. Or the opposite - being so fidgety or restless that you have been moving around a lot more than usual: not at all 9. Thoughts that you would be better off or of hurting yourself in some way: not at all Total score: 0 Depression Screening Interpretation: Negative Depression Screening Done: Yes 79738 - PHQ-9 Billing: Yes Source: Developed by Drs. Abelardo Youssef, Rita Warner, Reynold Jackson and colleagues, with an educational ezio from [employer]. Thrive Questionnaire Date Thrive assessed: 05/23/25 I am a: Patient What is your living situation today?: I have a steady place to live Within the past 12 months, did the food you bought not last and you didn't have the money to get more?: Never true Within the past 12 months, did you worry whether your food would run out before you got money to buy more?: Never true Do you have trouble paying for medicines?: No Do you have trouble getting transportation to medical appointments?: No Do you have trouble paying your heating and electricity bill?: No Do you have trouble taking care of your child, family member or friend?: No Do you have trouble with day-to-day activities such as bathing, preparing meals, shopping, managing finances, etc.?: No Are you currently unemployed and looking for a job?: No Are you interested in more education?: No Please select the resources that you would like help with: None Currently or been in a relationship where the following occur: No concerns reported THRIVE Score: 0 AUDIT C Alcohol Use Questionnaire (AUDIT-C) 1. How often do you have a drink containing alcohol?: Monthly or less 2. How many drinks containing alcohol do you have on a typical day when you are drinking?: 1 or 2 3. How often do you have six or more drinks on one occasion?: Never Total Score: 1 Score Reviewed/Action Taken: Yes ILIANA-7 AMB Questionnaire ILIANA-7 Date ILIANA - 7 assessed: 05/23/25 Feeling nervous, anxious, or on edge: 0 = Not at all Not being able to stop or control worryin = Not at all Worrying too much about different things: 0 = Not at all Trouble relaxin = Not at all Being so restless that it is hard to sit still: 0 = Not at all Becoming easily annoyed or irritable: 0 = Not at all Feeling afraid as if something awful might happen: 0 = Not at all Total ILIANA-7 score (0-4 normal; 5-9 mild; 10-14 moderate; 15-21 severe): 0 Source: Developed by Drs. Abelardo Youssef, Rita Warner, Reynold Jackson and colleagues, with an educational ezio from [employer]. ILIANA-7 Assessment Billing ILIANA-7 Assessment Tool: ILIANA-7 Assessment 62348 Review of Systems Const Denies chills, Denies fatigue, Denies fever(s), Denies headache(s) and Denies weakness Eyes Denies change in vision ENT Denies dizziness, Denies headache(s), Denies hearing loss, Denies nasal congestion, Denies sinus pain, Denies sinus pressure and Denies sore throat Card Denies chest pain, Denies lightheadedness, Denies dyspnea and Denies other (palpitations) Resp Denies cough, Denies dyspnea and Denies wheezing GI Denies abdominal pain, Denies melena, Denies hematochezia, Denies change in bowel habits, Denies dyspepsia and Denies nausea Denies hematuria and Denies dysuria Musc Denies abnormal gait, Denies myalgias, Denies arthralgias, Denies numbness and Denies tingling Skin/Breast Denies rash, Denies unusual bruising and Denies wounds Neuro Denies abnormal gait, Denies dizziness, Denies headache(s), Denies memory loss, Denies numbness, Denies Sensory deficit (Neuro), Denies tingling and Denies weakness Psych Denies anxiety, Denies depression and Denies memory loss Endo Denies cold intolerance, Denies fatigue, Denies heat intolerance, Denies polydipsia and Denies polyuria [place]/Lymph Denies easy bleeding and Denies easy bruising Aller/Immun Denies wheezing Physical exam (Primary Care) Vital Signs: Last Vital Signs Temp 98.1 F 05/23/25 11:33 Pulse 63 05/23/25 11:33 Resp 16 05/23/25 11:33 BP 136/70 05/23/25 11:33 Pulse Ox 97 05/23/25 11:33 Oxygen Delivery Method Room Air 05/23/25 11:33 BMI result Body Mass Index 29.4 Tobacco/Smoking Status: Tobacco use Status Tobacco use date assessed 05/23/25 05/23/25 11:37 Patient Tobacco Use Status Former Tobacco user 05/23/25 11:25 e-Cigarette/Vaping Use Never Used 05/23/25 11:25 PHQ-9: PHQ-9 Score PHQ-9: Total score 0 05/23/25 12:16 Depression Screening Interpretation: Negative Thrive Assessment: Date of Thrive Assessment Date Thrive assessed 05/23/25 05/23/25 11:37 Currently or been in a relationship where the following occur: No concerns reported Const General: no acute distress, well developed, alert and awake Nutritional Appearance: well nourished Orientation/consciousness: patient oriented x3 [facility] Head: Yes normocephalic and Yes atraumatic Ears: hearing grossly normal bilaterally and TM's normal bilaterally General nose exam: Normal external nose present and Normal nares present Mouth: Normal oral and palatal mucosa present and moist mucous membranes Teeth and gingiva: dentition normal Throat: Yes posterior oropharynx normal Eyes General: appearance normal, both eyes and all related structures Pupils: Equal, round and reactive pupils present and Pupil accommodation reflex normal EOM: EOMs intact bilaterally Neck Neck: Yes normal visual inspection, Yes no lymphadenopathy and Yes trachea midline Thyroid: Thyroid normal Carotids: no bruits Lymphatic: no lymphadenopathy noted Chest Chest palpation & inspection: normal inspection of the chest Resp Effort & Inspection: normal respiratory effort Auscultation: clear to auscultation bilaterally Cardio Rate: regular rate Rhythm: regular rhythm Heart sounds: S1 normal heart sound present, S2 normal heart sound present, no gallops, no murmurs and no rubs Bruits: no abdominal aortic bruits and no carotid bruits GI Palpation (GI): No Abdominal aortic bruit present, Soft to palpation, nontender, No hepatosplenomegaly present and No Rebound tenderness present Auscultation: normal bowel sounds General: Yes no CVA tenderness Back/Spine/Pelvis Back: no CVA tenderness Cervical Spine: cervical ROM normal and No Cervical spine tenderness Thoracic/Lumbar Spine: thoraco-lumbar ROM normal, No pain with thoraco-lumbar ROM, No thoracic spinal tenderness and No lumbar spinal tenderness Skin Lesions: no lesions Rashes: no rashes Trauma: no lacerations or abrasions Wounds: no wounds Nails: normal Neuro General: patient oriented x3 Cranial nerves: Yes Equal, round and reactive pupils present Cognition (Neuro): normal cognition Gait exam (Neuro): Normal gait present Motor exam (neuro): 5/5 motor strength present throughout Sensory Exam: No Sensory deficit (Neuro) Deep tendon reflexes (DTR's): Right patellar reflex intensity grade: 2+ and Left patellar reflex intensity grade: 2+ Extrem General: Yes normal to inspection and No edema Psych Appearance: grossly normal Affect: normal affect Attitude: cooperative Thought process: Normal thought process present Coding Level of Care Code Est Pt Level 3 (19360) Est Pt Prev Care 40-64y(54180) Diagnoses Adult general medical exam Z00.00 Essential hypertension I10 Hyperlipidemia E78.5 Hip pain M25.559 Screening for colon cancer Z12.11 Screening for breast cancer Z12.39 Breast cancer screening by mammogram Z12.31 Osteopenia M85.80 Additional Codes ILIANA-7 Assessment Billing - ILIANA-7 Assessment Tool: ILIANA-7 Assessment 91570 ([id number]) PHQ-9 - 92925 - PHQ-9 Billing: Yes ([id number]) Assessment & Plan Assessment & Plan (1) Adult general medical exam: Code(s): Z00.00 - Encounter for general adult medical examination without abnormal findings Category: Medical Plan: 64-year-old woman presents for complete physical exam Encouraged healthy diet with active lifestyle and plenty of exercise (2) Essential hypertension: Code(s): I10 - Essential (primary) hypertension Category: Medical Plan: Blood pressure is controlled. Goal is less than 140/90. Her blood pressures at home she will very good control. Continue current medications (3) Hyperlipidemia: Code(s): E78.5 - Hyperlipidemia, unspecified Category: Medical Plan: Lipids are fairly well controlled though LDL is too high. She is taking atorvastatin as prescribed Encouraged lifestyle changes We discussed that if it is still elevated at her next check we should consider increasing her dose (4) Hip pain: Code(s): M25.559 - Pain in unspecified hip Category: Medical Plan: Patient notes some lateral hip pain, bilaterally She notes this is worse after she sits for long periods-drives a bus Also when she sits in a recliner for long periods of time Mentioned physical therapy but she would prefer exercises at home. She will look up stretching exercises Can also use NSAIDs, ice and heat If not improving would recommend physical therapy and would check x-rays (5) Screening for colon cancer: Code(s): Z12.11 - Encounter for screening for malignant neoplasm of colon Category: Medical Plan: Last colonoscopy with [facility] 5 years ago and recommended 5 year follow-up She says she has an upcoming appointment scheduled (6) Screening for breast cancer: Code(s): Z12.39 - Encounter for other screening for malignant neoplasm of breast Category: Medical Plan: Mammogram in June was negative for malignancy and recommended annual screening She will get this scheduled (7) Breast cancer screening by mammogram: Code(s): Z12.31 - Encounter for screening mammogram for malignant neoplasm of breast Category: Medical Plan: As above (8) Osteopenia: Code(s): M85.80 - Other specified disorders of bone density and structure, unspecified site Category: Medical Plan: Bone density in 2022 showed osteopenia Will repeat this Encouraged good sources of calcium and vitamin-D Encouraged weight-bearing exercise Orders: Orders Comprehensive [place]. Panel Fast Today E78.5 - Hyperlipidemia, unspecified, Z00.00 - Encounter for general adult medical examination without abnormal findings CK, Total+Isoenzymes, Serum Today M25.559 - Pain in unspecified hip XR DEXA axial skeleton Today M81.0 - Age-related osteoporosis without current pathological fracture Lipid Panel Today E78.5 - Hyperlipidemia, unspecified, Z00.00 - Encounter for general adult medical examination without abnormal findings
[2025-05-23 11:33] VITALS: BP 136/70; PULSE 63; RESP 16; TEMP 36.7; O2SAT 97; BMI 29.4
--- OUTSIDE RECORDS SUMMARY | 2025-05-23 14:01 | XMS_ITS | Clinical Summary ---
Author Organization [facility] [address] [facility] Address [address] [place] [address] Phone Care Team Providers Care Second Officer Name Role Phone Sander Silva MD Primary Care Provider [phone] Allergies Active Allergy Reactions Criticality Noted Date Comments Latex Rash 01/29/2025 Medications albuterol HFA (PROAIR HFA ; PROVENTIL HFA ; VENTOLIN HFA) 90 mcg/actuation inhaler Inhale 1-2 puffs by mouth every 6 (six) hours if needed for wheezing. Active clobetasoL (TEMOVATE) 0.05 % cream Apply topically 2 (two) times a day. Active fluticasone propionate (FLONASE) 50 mcg/actuation nasal spray Administer 1 spray into each nostril 2 (two) times a day. Shake gently. Before first use, prime pump. After use, clean tip and replace cap. Active losartan (COZAAR) 25 mg tablet Take 1 tablet (25 mg total) by mouth 1 (one) time each day. Active atorvastatin (LIPITOR) 20 mg tablet Take 1 tablet (20 mg total) by mouth at bedtime. Active sodium,potassiu m,mag sulfates (Suprep Bowel Prep Kit) 17.5-3.13-1.6 gram recon soln bowel prep kit oral solution Take 177ML by mouth for 2 doses. SEE INSTRUCTIONS PROVIDED BY OFFICE. 1 kit Active Encounters Date Type Department Care Team Description 04/30/2025 Telephone Gastroenterology - [address] [phone] Sruthi Grullon MD 04/30/2025 Telephone Gastroenterology - [address] [phone] Sruthi Grullon MD from Last 3 Months Social History Tobacco Use Types Packs/Day Years Used Date Smoking Tobacco: Never Assessed Comments Unknown Sex and Gender Information Value Date Recorded Sex Assigned at Female 01/02/2025 1:59 PM EDT Legal Sex Female 5:49 AM EST Gender Identity Female 01/02/2025 1:59 PM EDT Sexual Orientation Not on file Plan of Treatment Upcoming Encounters Date Type Department Care Team (Late st Contact Info) Description 06/14/2025 2:00 PM EST Appointment [facility] Endoscopy [address] [place] [phone] Sruthi Grullon MD [address] [address] Health Maintenance Due Date Last Done Comments Breast Cancer Screening 1961 Colorectal Cancer Screening: Colonoscopy 1961 DTaP,Tdap,and Td Vaccines (1 - Tdap) 1980 Cervical Cancer Screening: P ap Smear 1982 Pneumococcal Vaccine: 50+ Ye ars (1 of 1 - PCV) 2011 Zoster Vaccines (1 of 2) 2011 Depression Screening 08/02/2024 HIV Screening 01/03/2025 Hepatitis C Screening 01/03/2025 Social Influencers of Health Screening 01/03/2025 COVID-19 Vaccine (1 - 2023-2 5 season) 2025 Influenza Vaccine (#1) 2025 RSV Immunization Adult Patie nts (1 - 1-dose 75+ series) 2036 HIB Vaccines Aged Out No longer eligi ble based on patient's age to complete this topic HPV Vaccines Aged Out No longer eligi ble based on patient's age to complete this topic Hepatitis A Vaccines Aged Out No long er eligible based on patient's age to complete this topic Hepatitis B Vaccines Aged Out No long er eligible based on patient's age to complete this topic IPV Vaccines Aged Out No longer eligi ble based on patient's age to complete this topic MMR Vaccines Aged Out No longer eligi ble based on patient's age to complete this topic Meningococcal ACWY Vaccine Aged Out N o longer eligible based on patient's age to complete this topic Meningococcal B Vaccine Aged Out No l onger eligible based on patient's age to complete this topic RSV Immunization Patients Un arely 20 months Aged Out No longer eligible b ased on patient's age to complete this topic Varicella Vaccines Aged Out No longer eligible based on patient's age to complete this topic Goals Goal Patient Goal Type Associated Problems Recent Progress Patient-Stated? Author Autogenerat ed Goal Care Plan Autogenerated Problem No Antoinette Aquino Additional Health Concerns Active Problems Noted Date Diagnosed Date Autogenerated Problem 04/30/2025 Insurance [facility] [id number] Care Teams Second Officer Relationship Specialty Start Date End Date Sander Silva MD [address] [place] [address] Dr [place] PCP - General Family Medicine 01/02/25
--- OUTSIDE RECORDS SUMMARY | 2025-05-23 14:01 | XMS_ITS | Data Portability ---
Author Organization [place] - [facility], Allergy Address [address] [address] Care Team Providers Care Shrink Pit Operator Name Role Phone NEYDA ROSANGELA Primary Care Provider [phone] Assessment Encounter Date Assessment Date Assessment LastModified [...] this time [email or web address] Not available 09/01/2024 13:45:35 01/05/2025 01/05/2025 The patient has significant allergies. We discussed lifestyle modifications, medical therapy versus immunotherapy. The patient is an excellent candidate for immunotherapy with either SCIT vs SLIT. This is at least a 3-5 year commitment and symptoms are not expected to improve quickly. Partial treatment will not result in success of therapy. They will need to followup with me every 6 months to determine their compliance and success. They are interested in proceeding with immunotherapy and will contact our office to schedule. I have prescribed an epi pen and instructed them to bring it with them the first day of their therapy to be certain that they are comfortable with its use. While they are in therapy they may continue to use antihistamine allergy medications as well as topical nasal sprays to help manage their symptoms. [email or web address] Not available 01/05/2025 10:34:25 Plan of Treatment Reminders Order Date Submit Date Provider Last Modified By Organization Details Last Modified Time Details Appointments None recorded. Lab None recorded. Referral None recorded. Procedures allergen immunother apy; multiple injections (PROC) 2024 025 [email or web address] Not available 08:28:21 allergy testing, skin prick (PROC) 2024 025 [email or web address] Not available 15:26:39 intraderma l allergy skin testing (PROC) 2024 025 [email or web address] Not available 15:26:39 pulmonary function test procedure (PROC) 2024 025 [email or web address] Not available 15:26:39 pulse oximetry (PROC) 2024 025 [email or web address] Not available 15:26:39 Surgeries None recorded. Imaging None recorded. Medication Orders EpiPen 2-Tam 0.3 mg/0.3 mL injection, auto-injec tor 2024 025 [facility] #[id number], [address] [place], [address], 10:39:26 Patient TargetsNo targets recorded. Patient Instructions Encounter Date Encounter Id Patient Instructions Last Modified By Organization Details Last Modified Time 12/15/2024 [id number] spirometry testing* [email or web address] Not available 12/20/2024 11:23:03 Reason for Referral None Reported. Results Created Date Observation Date Name Description Value Unit Range Abnormal Flag Note LastModifiedBy Organization Detail LastModifiedTime 12/16/19 25 lizzette metry testi ng* No observ ation record ed. [email or web address] Not Available 2024 11:46:35 Result Notes None recorded. Problems Name Problem SNOMED Code Status Onset Date Resolution Date Notes Provider Name and Address Organization Details Recorded Time Chronic hoarseness 3231505899047 Active 2024 NAHEED JENNINGS MD [address] [place] [address], [phone] [place] [address] - [facility] 5 13:41:10 Allergic rhinitis 28343565 Active 2024 NAHEED JENNINGS MD 100 [facility], [place], [address], [facility] - [facility] 5 13:41:23 Allergic rhinitis caused by pollen 43209494 Active 2024 NAHEED JENNINGS MD 100 [facility],[place] [address], [place], [address], [facility] - [facility] 21:53:57 Posterior rhinorrhea 16600129 Active 2024 PHILLIP LANDAVERDE RN 100 [facility],[place] [address], [place], [address], [facility] - [facility] 12:04:31 Dry cough 98731477 Active 2024 NAHEED JENNINGS MD 100 [facility],[place] [address], [place], [address], [facility] - [facility] 10:27:11 Problem Notes None recorded. Procedures Surgical History Date Name Laterality Status Provider Name and Address Organization Details Recorded Time Allergy Testing-Full completed PHILLIP LANDAVERDE RN 100 [facility],[place] [address], [place], [address], [facility] 12/15/2024 12:03:28 FOL_DP completed NAHEED JENNINGS MD [address], [address], [facility] 09/01/2024 13:34:43 Imaging Results None recorded. Procedure [...] completed Not Available Not Available Not Available ciprofloxac in 500 mg tablet TAKE 1 TABLET BY MOUTH EVERY 12 HOURS FOR 5 DAYS active Not Available Not Available No t Available ketorolac 0.5 % eye drops INSTILL ONE DROP INTO LEFT EYE TWICE A DAY 12/15 completed Not Available Not Available Not Available prednisolon e acetate 1 % eye drops,suspe nsion LOCATION: LEFT EYE. APPLY ONE DROP IN THE LEFT EYE FOUR TIMES DAILY 12/15 completed Not Available Not Available Not Available simvastatin 20 mg tablet TAKE 1 TABLET ORALLY AT BEDTIME 09/01 completed Not Available Not Available Not Available prednisone 50 mg tablet TAKE 1 TABLET BY MOUTH EVERY DAY FOR 5 DAYS active Not Available Not Available No t Available losartan 25 mg tablet TAKE 1 TAB BY MOUTH DAILY active Not Available Not Available No t Available epinephrine 0.3 mg/0.3 mL injection, auto-inject or INJECT 1 DOSE NEEDED BY INJECTION ROUTE FOR 1 DAY, FOR ANAPHYLAX IS. active Not Available Not Available No t Available albuterol sulfate HFA 90 mcg/actuati on aerosol inhaler INHALE 1 TO 2 PUFFS BY MOUTH NEEDED 4 TIMES DAILY FOR SHORTNESS OF BREATH 09/01 completed Not Available Not Available Not Available nitrofurant oin monohydrate /macrocryst als 100 mg capsule TAKE 1 CAPSULE BY MOUTH EVERY 12 HOURS FOR 5 DAYS. TAKE WITH FOOD. active Not Available Not Available No t Available Vitals Date Recorded Body height Body mass index (BMI) Body weight Provider Name and Address Organization Details Last Updated DateTime 09/01/2024 162.56 cm 30.9 kg/m2 89366.63 g Rebeka Boucher [place] - [facility] 09/01/2024 13:23:21 Date Recorded Body height Body mass index (BMI) Body weight Oxygen saturation Oxygen saturation in Arterial blood by Pulse oximetry Provider Name and Address Organization Details Last Updated DateTime 12/15/2024 162.56 cm 29.2 kg/m2 14257.7 g 97 % 97 % PHILLIP LANDAVERDE, ANNY [address] [place] [address], [address], [place] - [facility] 10:53:35 Date Recorded Body height Provider Name an d Address Organization Details Last Updated DateTime 01/05/2025 162.56 cm MAYNOR SINGH [place] - [facility] [place] 01/05/2025 10:15:25 Social History Question Answer Notes LastModified by Organizat ion Details LastModified Time Tobacco Smoking Status Former Smoker PHILLIP LANDAVERDE RN [address] [place] [address], [address], [facility] - [facility] 12/15/2024 10:55:31 When Did You Quit Smoking? 16+yearssinc elastcigaret te Information not available 12/15/2024 What Is Your Current Pack Years? 10packyears Information not available 12/15/2024 At What Age Did You Start Smoking Tobacco? 21 Information not available 12/15/2024 How Much Tobacco Do You Smoke? 1 PPW Information not available 12/15/2024 How Many Years Have You Smoked Tobacco? 3 Information not available 12/15/2024 Sex: Unknown Functional Status None recorded. Mental Status None recorded. Family History Nothing Reported. Medical History Condition Response Hypertension Y Gynecological HistoryNo gynecological history recorded. Obstetrics History GPAL:G 0 P 0 0 0 0 Past Encounters Encounter ID Performer Location Encounter Start Date Encounter Closed Date Diagnosis/Indication Diagnosis SNOMED-CT Code Diagnosis ICD10 Code Diagnosis IMO Codes Diagnosis Note [id number] NAHEED JENNINGS MD [facility] [address] [address] 09/01/2024 13:05:57 09/01/2024 13:46:35 Chronic hoarseness 5408668750 105 R49.0 Allergic rhinitis 643817 04 J30.9 [id number] PHILLIP LANDAVERDE RN All[facility] [address] [place] [phone] 12/15/2024 10:16:26 12/15/2024 12:05:32 Allergic rhinitis 84317434 J30.9 Allergic r hinitis caused by pollen 29721753 J30.5 8106323635 Posterior rhinorrhea 758 16362 R09.82 [id number] NAHEED JENNINGS MD [facility] [address] [address] 01/05/2025 10:13:49 01/05/2025 10:40:05 Allergic rhinitis caused by pollen 23694345 J30.1 44600414 Posterior rhinorrhea 758 80997 R09.82 2557 She may continue to use OTC meds like claritin or mucinex for sx management Dry cough 97806940 R05.8 351344 Discussed that her prolonged dry cough after URI may be related to underlying predisposi tion to allergies Health Concerns Section Related Observation LastModified by Organization Detai ls LastModified Time None Recorded Concern Status LastModified by Organization Details LastModified Time None Recorded Advance Directives Directive None Recorded Payers Insurance Date Sequence Insurance Name Policy Number Policy White Covered Member ID White Member ID Guarantor Name 01/05/2025 1 [facility] [place] [employer] [place] [id number] Fredi Davis [id number] Maribell Davis Notes Date Note Type Note Provider Name and Address Organization Details Recorded Time 09/01/2024 text/html ROS as noted in the HPI laryngitismost recent was treated with zpak and prednisone with some relieftickle cough associated with URI and increased nasal [id number] Dr Lissy HAWK - edema and mucus notedno difficulty at nighttobacco - 41 yrs agoroutine vocal demandno reflux - no change with famotidine 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 09/01/24 Plosky Tickle cough. feels it is related to PND. FOL benign. offered allergy testing NAHEED JENNINGS MD [address] [place] [address],[address], [address], [facility] 01/05/2025 10:39:42 OBGyn Episode No OBEpisode recorded.
== END 2025-05-23 12:13 | disposition home or self-care (01) ==
LOC: HO.HMCFM 10:49
PROVIDERS: PCP Family Medicine; Visit Provider Family Medicine
DX: Z00.00 Encounter for general adult medical examination without abnormal findings (principal); I10 Essential (primary) hypertension; E78.5 Hyperlipidemia, unspecified; M25.551 Pain in right hip; M25.552 Pain in left hip; Z12.11 Encounter for screening for malignant neoplasm of colon; Z12.39 Encounter for other screening for malignant neoplasm of breast; Z12.31 Encounter for screening mammogram for malignant neoplasm of breast; M85.80 Other specified disorders of bone density and structure, unspecified site

== ENCOUNTER → 2025-05-23 10:49 | Outpatient (BNVA) | payer OTHER, SELFPAY | PROVIDERS: PCP Family Medicine; Visit Provider Family Medicine | DX: Z00.00 Encounter for general adult medical examination without abnormal findings (principal); E78.5 Hyperlipidemia, unspecified; M25.551 Pain in right hip; M25.552 Pain in left hip; I10 Essential (primary) hypertension; M81.0 Age-related osteoporosis without current pathological fracture | CPT/HCPCS: 96127 ==

== ENCOUNTER → 2025-06-20 10:32 | Outpatient (BNVA) | payer SELFPAY | PROVIDERS: PCP Family Medicine; Visit Provider Physician Assistant | DX: Z02.79 Encounter for issue of other medical certificate (principal) ==